=== PATIENT | female | born 1950 | race Caucasian/White ===

== ENCOUNTER 2017-05-09 14:28 | Inpatient (IN) | payer MEDICARE ==
[~2017-05-09] VITALS: Ht 162.6 cm; Wt 108.5 kg
[~2017-05-09 14:28] MED LIST: ALBU90OI INH; ALEN70 PO; AMLO5 PO; ASPI325 PO; AZIT250 PO; BETA.05TC TOP; CALGLU500 PO; CONEST.625; Calcium Citrat1 EA10 PO; DULO30 PO; ESOM20 PO; ESTR1 PO; ESTR2 PO; EXTRA STRENGTH500 MG PO; FISH OIL 1,0001 EAC1 PO; FISH1000 PO; GUAI600T33 PO; Glucosamine Ch1 EAC4 PO; LISI20 PO; MELO7.5; MELO7.5 PO; METPRE4DP PO; MINO50 PO; MOBIC; Mobic15 MG PO; OXYACE5T PO; OXYB5 PO; Omeprazole20 M1 PO; RISE5 PO; Sulfamethoxazo1 EAC4 PO; TETR250 PO; TRAM50 PO
[2017-05-09 16:10] LABS: Albumin, Blood 2.9 g/dL (3.4-5.0); Albumin/Globulin Ratio 0.5 (0.8-1.8); Bilirubin, Total 0.4 mg/dL (0.1-1.0); Bun/Creatinine Ratio 17.9 (12.0-20.0); Calcium, Blood 8.7 mg/dL (8.5-10.1); Creatinine, Blood 1.06 mg/dL (0.40-1.00); Globulin, Blood 5.7 g/dL (2.2-4.0); Potassium, Blood 3.4 mmol/L (3.5-5.5); Total Protein, Blood 8.6 g/dL (6.4-8.2)
[2017-05-09 16:13] LABS: BASOPHILS ABSOLUTE AUTO 0.02 K/mm3 (0.00-0.23); BASOPHILS PERCENT AUTO 0 % (0-2); EOSINOPHILS ABSOLUTE AUTO 0.04 K/mm3 (0.00-0.68); EOSINOPHILS PERCENT AUTO 0 % (0-6); Hematocrit 38.4 % (33.0-51.0); Hemoglobin 12.6 g/dL (11.5-16.0); IMMATURE GRAN ABSOLUTE AUTO 0.04 K/mm3 (0.00-0.10); IMMATURE GRAN PERCENT AUTO 0 % (0-1); LYMPHOCYTES ABSOLUTE AUTO 3.13 K/mm3 (0.84-5.20); LYMPHOCYTES PERCENT AUTO 26 % (21-46); MONOCYTES ABSOLUTE AUTO 0.95 K/mm3 (0.16-1.47); MONOCYTES PERCENT AUTO 8 % (4-13); Mean Corpuscular HGB 27.4 pg (26.0-34.0); Mean Corpuscular HGB Conc 32.8 g/dL (31.5-36.5); Mean Corpuscular Volume 84 fL (80-100); Mean Platelet Volume 10.3 fL (9.1-12.4); NEUTROPHILS ABSOLUTE AUTO 7.66 K/mm3 (1.96-9.15); NEUTROPHILS PERCENT AUTO 65 % (41-73); Platelet Count 228 K/mm3 (150-400); RDW Coefficient Variation 14.3 % (11.7-14.2); RDW Standard Deviation 43.5 fL (35.1-46.3); White Blood Cell Count 11.84 K/mm3 (4.00-11.30)
[2017-05-10 04:19] LABS: Source, Urine Clean Catch
[2017-05-10 04:21] LABS: Bilirubin, Urine Neg (Neg); Blood, Urine 4+ (Neg); Glucose Qualitative, Urine Neg (Neg); Ketones, Urine Neg (Neg); Leukocyte Esterase, Urine 2+ (Neg); Nitrite, Urine Neg (Neg); Protein, Urine 1+ (Neg); Urobilinogen, Urine NORM (Normal)
[2017-05-10 04:38] LABS: Appearance, Urine Clear (Clear); Color, Urine Yellow (P-Yellow)
[2017-05-10 04:39] LABS: Red Blood Cells, Urine 0-2 /hpf (0-2); Squamous Epithelial Cells Mod /hpf (Few)
[2017-05-10 04:40] LABS: Bacteria Few /hpf
[2017-05-10 05:34] LABS: BASOPHILS ABSOLUTE AUTO 0.02 K/mm3 (0.00-0.23); BASOPHILS PERCENT AUTO 0 % (0-2); EOSINOPHILS ABSOLUTE AUTO 0.09 K/mm3 (0.00-0.68); EOSINOPHILS PERCENT AUTO 1 % (0-6); Hematocrit 35.9 % (33.0-51.0); Hemoglobin 11.8 g/dL (11.5-16.0); IMMATURE GRAN ABSOLUTE AUTO 0.02 K/mm3 (0.00-0.10); IMMATURE GRAN PERCENT AUTO 0 % (0-1); LYMPHOCYTES ABSOLUTE AUTO 3.35 K/mm3 (0.84-5.20); LYMPHOCYTES PERCENT AUTO 35 % (21-46); MONOCYTES ABSOLUTE AUTO 0.74 K/mm3 (0.16-1.47); MONOCYTES PERCENT AUTO 8 % (4-13); Mean Corpuscular HGB 27.5 pg (26.0-34.0); Mean Corpuscular HGB Conc 32.9 g/dL (31.5-36.5); Mean Corpuscular Volume 84 fL (80-100); Mean Platelet Volume 10.4 fL (9.1-12.4); NEUTROPHILS ABSOLUTE AUTO 5.47 K/mm3 (1.96-9.15); NEUTROPHILS PERCENT AUTO 57 % (41-73); Platelet Count 189 K/mm3 (150-400); RDW Coefficient Variation 14.3 % (11.7-14.2); RDW Standard Deviation 43.8 fL (35.1-46.3); Red Blood Cell Count 4.29 M/mm3 (3.80-5.20); White Blood Cell Count 9.69 K/mm3 (4.00-11.30)
[2017-05-10 05:47] LABS: Amylase, Blood 31 U/L (25-115)
[2017-05-10 05:49] LABS: Alanine Aminotransfer (ALT/SGP 28 U/L (12-78); Albumin, Blood 2.5 g/dL (3.4-5.0); Albumin/Globulin Ratio 0.5 (0.8-1.8); Alk Phos 86 U/L (50-136); Anion Gap 10 mmol/L (6-16); Aspartate Aminotrans (AST/SGOT 31 U/L (12-37); Bilirubin, Direct <0.1 mg/dL (0.0-0.3); Bilirubin, Indirect Unable to Calculate mg/dL (0.1-0.7); Bilirubin, Total 0.4 mg/dL (0.1-1.0); Blood Urea Nitrogen 16 mg/dL (8-24); CO2, Blood 23 mmol/L (21-32); Calcium, Blood 8.4 mg/dL (8.5-10.1); Chloride, Blood 109 mmol/L (98-108); Globulin, Blood 5.3 g/dL (2.2-4.0); Glomerular Filtration Rate 59 (60-); Glucose, Blood 101 mg/dL (70-99); Potassium, Blood 3.8 mmol/L (3.5-5.5); Sodium, Blood 142 mmol/L (136-145); Total Protein, Blood 7.8 g/dL (6.4-8.2)
[2017-05-11 05:31] LABS: BASOPHILS ABSOLUTE AUTO 0.01 K/mm3 (0.00-0.23); BASOPHILS PERCENT AUTO 0 % (0-2); EOSINOPHILS ABSOLUTE AUTO 0.12 K/mm3 (0.00-0.68); EOSINOPHILS PERCENT AUTO 2 % (0-6); Hematocrit 33.8 % (33.0-51.0); Hemoglobin 10.9 g/dL (11.5-16.0); IMMATURE GRAN ABSOLUTE AUTO 0.02 K/mm3 (0.00-0.10); IMMATURE GRAN PERCENT AUTO 0 % (0-1); LYMPHOCYTES ABSOLUTE AUTO 1.91 K/mm3 (0.84-5.20); LYMPHOCYTES PERCENT AUTO 33 % (21-46); MONOCYTES PERCENT AUTO 7 % (4-13); Mean Corpuscular HGB Conc 32.2 g/dL (31.5-36.5); Mean Corpuscular Volume 84 fL (80-100); Mean Platelet Volume 9.9 fL (9.1-12.4); NEUTROPHILS ABSOLUTE AUTO 3.35 K/mm3 (1.96-9.15); NEUTROPHILS PERCENT AUTO 58 % (41-73); Platelet Count 186 K/mm3 (150-400); RDW Standard Deviation 43.3 fL (35.1-46.3); Red Blood Cell Count 4.03 M/mm3 (3.80-5.20); White Blood Cell Count 5.81 K/mm3 (4.00-11.30)
[2017-05-11 06:05] LABS: Alanine Aminotransfer (ALT/SGP 22 U/L (12-78); Albumin, Blood 2.4 g/dL (3.4-5.0); Albumin/Globulin Ratio 0.5 (0.8-1.8); Alk Phos 70 U/L (50-136); Anion Gap 10 mmol/L (6-16); Aspartate Aminotrans (AST/SGOT 19 U/L (12-37); Bilirubin, Total 0.3 mg/dL (0.1-1.0); Blood Urea Nitrogen 8 mg/dL (8-24); Bun/Creatinine Ratio 9.3 (12.0-20.0); CO2, Blood 24 mmol/L (21-32); Calcium, Blood 8.1 mg/dL (8.5-10.1); Chloride, Blood 110 mmol/L (98-108); Creatinine, Blood 0.86 mg/dL (0.40-1.00); Globulin, Blood 4.7 g/dL (2.2-4.0); Glomerular Filtration Rate >60 (60-); Glucose, Blood 93 mg/dL (70-99); Potassium, Blood 3.4 mmol/L (3.5-5.5); Sodium, Blood 144 mmol/L (136-145); Total Protein, Blood 7.1 g/dL (6.4-8.2)
[2017-05-12 06:20] LABS: BASOPHILS ABSOLUTE AUTO 0.01 K/mm3 (0.00-0.23); BASOPHILS PERCENT AUTO 0 % (0-2); EOSINOPHILS ABSOLUTE AUTO 0.11 K/mm3 (0.00-0.68); EOSINOPHILS PERCENT AUTO 2 % (0-6); Hematocrit 33.9 % (33.0-51.0); IMMATURE GRAN ABSOLUTE AUTO 0.03 K/mm3 (0.00-0.10); IMMATURE GRAN PERCENT AUTO 1 % (0-1); LYMPHOCYTES ABSOLUTE AUTO 2.32 K/mm3 (0.84-5.20); LYMPHOCYTES PERCENT AUTO 38 % (21-46); MONOCYTES PERCENT AUTO 8 % (4-13); Mean Corpuscular HGB Conc 32.4 g/dL (31.5-36.5); Mean Corpuscular Volume 83 fL (80-100); Mean Platelet Volume 9.8 fL (9.1-12.4); NEUTROPHILS ABSOLUTE AUTO 3.15 K/mm3 (1.96-9.15); NEUTROPHILS PERCENT AUTO 51 % (41-73); Platelet Count 192 K/mm3 (150-400); RDW Coefficient Variation 13.7 % (11.7-14.2); RDW Standard Deviation 41.5 fL (35.1-46.3); Red Blood Cell Count 4.08 M/mm3 (3.80-5.20); White Blood Cell Count 6.12 K/mm3 (4.00-11.30)
[2017-05-12 06:41] LABS: Alanine Aminotransfer (ALT/SGP 21 U/L (12-78); Albumin, Blood 2.5 g/dL (3.4-5.0); Albumin/Globulin Ratio 0.5 (0.8-1.8); Alk Phos 74 U/L (50-136); Anion Gap 9 mmol/L (6-16); Aspartate Aminotrans (AST/SGOT 19 U/L (12-37); Bilirubin, Total 0.3 mg/dL (0.1-1.0); Blood Urea Nitrogen 4 mg/dL (8-24); Bun/Creatinine Ratio 5.5 (12.0-20.0); CO2, Blood 27 mmol/L (21-32); Calcium, Blood 7.9 mg/dL (8.5-10.1); Chloride, Blood 107 mmol/L (98-108); Creatinine, Blood 0.73 mg/dL (0.40-1.00); Globulin, Blood 4.9 g/dL (2.2-4.0); Glomerular Filtration Rate >60 (60-); Glucose, Blood 95 mg/dL (70-99); Percent Saturation 26.1 % (15.0-50.0); Potassium, Blood 3.2 mmol/L (3.5-5.5); Sodium, Blood 143 mmol/L (136-145); Total Protein, Blood 7.4 g/dL (6.4-8.2)
[2017-05-13 04:38] LABS: BASOPHILS ABSOLUTE AUTO 0.01 K/mm3 (0.00-0.23); BASOPHILS PERCENT AUTO 0 % (0-2); EOSINOPHILS ABSOLUTE AUTO 0.08 K/mm3 (0.00-0.68); EOSINOPHILS PERCENT AUTO 2 % (0-6); Hematocrit 35.1 % (33.0-51.0); Hemoglobin 11.4 g/dL (11.5-16.0); IMMATURE GRAN ABSOLUTE AUTO 0.03 K/mm3 (0.00-0.10); IMMATURE GRAN PERCENT AUTO 1 % (0-1); LYMPHOCYTES ABSOLUTE AUTO 2.22 K/mm3 (0.84-5.20); LYMPHOCYTES PERCENT AUTO 41 % (21-46); MONOCYTES PERCENT AUTO 9 % (4-13); Mean Corpuscular HGB 27.2 pg (26.0-34.0); Mean Corpuscular HGB Conc 32.5 g/dL (31.5-36.5); Mean Corpuscular Volume 84 fL (80-100); Mean Platelet Volume 9.7 fL (9.1-12.4); NEUTROPHILS ABSOLUTE AUTO 2.54 K/mm3 (1.96-9.15); NEUTROPHILS PERCENT AUTO 47 % (41-73); Platelet Count 190 K/mm3 (150-400); RDW Coefficient Variation 13.6 % (11.7-14.2); RDW Standard Deviation 41.8 fL (35.1-46.3); Red Blood Cell Count 4.19 M/mm3 (3.80-5.20); White Blood Cell Count 5.38 K/mm3 (4.00-11.30)
[2017-05-13 04:59] LABS: Alanine Aminotransfer (ALT/SGP 19 U/L (12-78); Albumin, Blood 2.6 g/dL (3.4-5.0); Albumin/Globulin Ratio 0.5 (0.8-1.8); Alk Phos 71 U/L (50-136); Anion Gap 6 mmol/L (6-16); Aspartate Aminotrans (AST/SGOT 19 U/L (12-37); Bilirubin, Total 0.3 mg/dL (0.1-1.0); Blood Urea Nitrogen 3 mg/dL (8-24); Bun/Creatinine Ratio 3.7 (12.0-20.0); CO2, Blood 31 mmol/L (21-32); Calcium, Blood 7.8 mg/dL (8.5-10.1); Chloride, Blood 105 mmol/L (98-108); Creatinine, Blood 0.81 mg/dL (0.40-1.00); Globulin, Blood 4.8 g/dL (2.2-4.0); Glomerular Filtration Rate >60 (60-); Glucose, Blood 106 mg/dL (70-99); Potassium, Blood 3.3 mmol/L (3.5-5.5); Sodium, Blood 142 mmol/L (136-145); Total Protein, Blood 7.4 g/dL (6.4-8.2)
[2017-05-13 05:17] LABS: Magnesium, Blood 1.1 mg/dL (1.6-2.4)
[2017-05-13 11:15] LABS: Source, Urine Clean Catch
[2017-05-13 11:22] LABS: Bilirubin, Urine Neg (Neg); Blood, Urine Neg (Neg); Glucose Qualitative, Urine Neg (Neg); Ketones, Urine Neg (Neg); Leukocyte Esterase, Urine 2+ (Neg); Nitrite, Urine Neg (Neg); Protein, Urine Neg (Neg); Urobilinogen, Urine NORM (Normal)
[2017-05-13 11:43] LABS: Color, Urine Pale Yellow (P-Yellow)
[2017-05-13 11:44] LABS: Appearance, Urine Hazy (Clear); Bacteria Few /hpf; Red Blood Cells, Urine 0-2 /hpf (0-2)
[2017-05-13 11:45] LABS: Squamous Epithelial Cells Few /hpf (Few)
[2017-05-13] MEDS ORDERED: METR500 PO (12:13)
[2017-05-13] MEDS ORDERED: CIPR500 PO (12:13)
[2017-05-13] MEDS ORDERED: MAGOX 400400 MG PO (12:14)
[2018-03-05] MEDS ORDERED: Zofran Odt4 MG PO (19:20)
[2018-03-08] MEDS ORDERED: Bactrim Ds Tab1 EACH PO (08:47)
[2018-03-08] MEDS ORDERED: TIZANIDINE HCL2 MG PO (08:49)
[2018-03-08] MEDS ORDERED: Amoxicillin500 MG PO (11:38)
[2018-03-08] MEDS ORDERED: PROM25 PO (11:38)
[2018-04-25] MEDS ORDERED: ASPI81CH PO (07:13)
== END 2017-05-13 12:53 | disposition home or self-care (01) | DRG 392 ==
LOC: ER 14:28 → MEDS 20:19
PROVIDERS: Emergency Medicine; Family Medicine; Internal Medicine
DX: K57.20 Diverticulitis of large intestine with perforation and abscess without bleeding (principal); J44.9 Chronic obstructive pulmonary disease, unspecified; E87.6 Hypokalemia; G89.29 Other chronic pain; I10 Essential (primary) hypertension; M54.9 Dorsalgia, unspecified; Z96.642 Presence of left artificial hip joint; Z96.653 Presence of artificial knee joint, bilateral; Z87.891 Personal history of nicotine dependence; Z88.8 Allergy status to other drugs, medicaments and biological substances; Z91.048 Other nonmedicinal substance allergy status; Z79.899 Other long term (current) drug therapy
CPT/HCPCS: 36415; 74000; 74177; 80048; 80053; 80076; 81001; 82150; 82728; 83540; 83550; 83605; 83735; 85025; 87040; 87086; 94640; 94660; 94760; 94762; 96365; 99285; J1650; J2543; J3480; J7030; Q9967

== ENCOUNTER 2017-06-13 06:36 | Inpatient (IN) | payer MEDICARE ==
[~2017-06-13] VITALS: Ht 162.6 cm; Wt 106.5 kg
[~2017-06-13 06:36] MED LIST changes: +CIPR500 PO; +MAGOX 400400 MG PO; +METR500 PO
[2017-06-13] MEDS ORDERED: DULO30 PO (07:32)
[2017-06-13] MEDS ORDERED: Prilosec Otc20 MG PO (07:32)
[2017-06-13] MEDS ORDERED: DICL25ER PO (07:33)
[2017-06-13] MEDS ORDERED: AMLO10 PO (07:33)
[2017-06-13] MEDS ORDERED: Bystolic5 MG PO (07:33)
[2017-06-13] MEDS ORDERED: POTA10T PO (07:33)
[2017-06-13 07:36] LABS: BASOPHILS ABSOLUTE AUTO 0.05 K/mm3 (0.00-0.23); BASOPHILS PERCENT AUTO 1 % (0-2); EOSINOPHILS ABSOLUTE AUTO 0.06 K/mm3 (0.00-0.68); EOSINOPHILS PERCENT AUTO 1 % (0-6); Hemoglobin 12.3 g/dL (11.5-16.0); IMMATURE GRAN ABSOLUTE AUTO 0.03 K/mm3 (0.00-0.10); IMMATURE GRAN PERCENT AUTO 0 % (0-1); LYMPHOCYTES ABSOLUTE AUTO 2.22 K/mm3 (0.84-5.20); LYMPHOCYTES PERCENT AUTO 26 % (21-46); MONOCYTES ABSOLUTE AUTO 0.68 K/mm3 (0.16-1.47); MONOCYTES PERCENT AUTO 8 % (4-13); Mean Corpuscular HGB 27.1 pg (26.0-34.0); Mean Corpuscular HGB Conc 32.4 g/dL (31.5-36.5); Mean Corpuscular Volume 84 fL (80-100); Mean Platelet Volume 10.1 fL (9.1-12.4); NEUTROPHILS PERCENT AUTO 65 % (41-73); Platelet Count 199 K/mm3 (150-400); RDW Coefficient Variation 14.9 % (11.7-14.2); RDW Standard Deviation 45.9 fL (35.1-46.3); Red Blood Cell Count 4.54 M/mm3 (3.80-5.20); White Blood Cell Count 8.64 K/mm3 (4.00-11.30)
[2017-06-13 07:49] LABS: Alanine Aminotransfer (ALT/SGP 13 U/L (12-78); Albumin, Blood 2.9 g/dL (3.4-5.0); Albumin/Globulin Ratio 0.6 (0.8-1.8); Alk Phos 75 U/L (50-136); Anion Gap 7 mmol/L (6-16); Aspartate Aminotrans (AST/SGOT 14 U/L (12-37); Bilirubin, Total 0.4 mg/dL (0.1-1.0); Blood Urea Nitrogen 20 mg/dL (8-24); Bun/Creatinine Ratio 21.3 (12.0-20.0); CO2, Blood 27 mmol/L (21-32); Calcium, Blood 8.6 mg/dL (8.5-10.1); Chloride, Blood 105 mmol/L (98-108); Creatinine, Blood 0.94 mg/dL (0.40-1.00); Globulin, Blood 5.2 g/dL (2.2-4.0); Glomerular Filtration Rate >60 (60-); Glucose, Blood 126 mg/dL (70-99); Potassium, Blood 3.6 mmol/L (3.5-5.5); Sodium, Blood 139 mmol/L (136-145); Total Protein, Blood 8.1 g/dL (6.4-8.2)
[2017-06-13] MEDS ORDERED: CALCIUM + D3 E1 EACH PO (11:21)
[2017-06-13] MEDS ORDERED: GLUC500 PO (11:22)
[2017-06-13] MEDS ORDERED: FISH OIL 1,0001 EAC1 PO (11:22)
[2017-06-13] MEDS ORDERED: OPTIFLEX-C400 MG PO (11:23)
[2017-06-13] MEDS ORDERED: MSM1000 MG PO (11:23)
[2017-06-14 05:33] LABS: BASOPHILS ABSOLUTE AUTO 0.03 K/mm3 (0.00-0.23); BASOPHILS PERCENT AUTO 0 % (0-2); EOSINOPHILS ABSOLUTE AUTO 0.06 K/mm3 (0.00-0.68); EOSINOPHILS PERCENT AUTO 1 % (0-6); Hemoglobin 12.9 g/dL (11.5-16.0); IMMATURE GRAN ABSOLUTE AUTO 0.03 K/mm3 (0.00-0.10); IMMATURE GRAN PERCENT AUTO 0 % (0-1); LYMPHOCYTES ABSOLUTE AUTO 1.51 K/mm3 (0.84-5.20); LYMPHOCYTES PERCENT AUTO 20 % (21-46); MONOCYTES ABSOLUTE AUTO 0.55 K/mm3 (0.16-1.47); MONOCYTES PERCENT AUTO 7 % (4-13); Mean Corpuscular HGB 27.1 pg (26.0-34.0); Mean Corpuscular HGB Conc 32.3 g/dL (31.5-36.5); Mean Corpuscular Volume 84 fL (80-100); Mean Platelet Volume 10.6 fL (9.1-12.4); NEUTROPHILS ABSOLUTE AUTO 5.38 K/mm3 (1.96-9.15); NEUTROPHILS PERCENT AUTO 71 % (41-73); Platelet Count 203 K/mm3 (150-400); RDW Coefficient Variation 14.7 % (11.7-14.2); Red Blood Cell Count 4.76 M/mm3 (3.80-5.20); White Blood Cell Count 7.56 K/mm3 (4.00-11.30)
[2017-06-14 05:49] LABS: Anion Gap 10 mmol/L (6-16); Blood Urea Nitrogen 11 mg/dL (8-24); Bun/Creatinine Ratio 14.1 (12.0-20.0); CO2, Blood 26 mmol/L (21-32); Calcium, Blood 8.5 mg/dL (8.5-10.1); Chloride, Blood 105 mmol/L (98-108); Creatinine, Blood 0.78 mg/dL (0.40-1.00); Glomerular Filtration Rate >60 (60-); Glucose, Blood 113 mg/dL (70-99); Potassium, Blood 3.6 mmol/L (3.5-5.5); Sodium, Blood 141 mmol/L (136-145)
[2017-06-16 04:52] LABS: BASOPHILS ABSOLUTE AUTO 0.05 K/mm3 (0.00-0.23); BASOPHILS PERCENT AUTO 0 % (0-2); EOSINOPHILS ABSOLUTE AUTO 0.12 K/mm3 (0.00-0.68); EOSINOPHILS PERCENT AUTO 1 % (0-6); Hematocrit 42.9 % (33.0-51.0); Hemoglobin 13.6 g/dL (11.5-16.0); IMMATURE GRAN ABSOLUTE AUTO 0.04 K/mm3 (0.00-0.10); IMMATURE GRAN PERCENT AUTO 0 % (0-1); LYMPHOCYTES PERCENT AUTO 28 % (21-46); MONOCYTES ABSOLUTE AUTO 0.98 K/mm3 (0.16-1.47); MONOCYTES PERCENT AUTO 8 % (4-13); Mean Corpuscular HGB 27.1 pg (26.0-34.0); Mean Corpuscular HGB Conc 31.7 g/dL (31.5-36.5); Mean Corpuscular Volume 86 fL (80-100); Mean Platelet Volume 9.7 fL (9.1-12.4); NEUTROPHILS ABSOLUTE AUTO 8.02 K/mm3 (1.96-9.15); NEUTROPHILS PERCENT AUTO 63 % (41-73); Platelet Count 285 K/mm3 (150-400); RDW Coefficient Variation 14.6 % (11.7-14.2); RDW Standard Deviation 46.3 fL (35.1-46.3); Red Blood Cell Count 5.01 M/mm3 (3.80-5.20); White Blood Cell Count 12.81 K/mm3 (4.00-11.30)
[2017-06-16 05:36] LABS: Anion Gap 9 mmol/L (6-16); Blood Urea Nitrogen 8 mg/dL (8-24); Bun/Creatinine Ratio 9.4 (12.0-20.0); CO2, Blood 28 mmol/L (21-32); Calcium, Blood 8.9 mg/dL (8.5-10.1); Chloride, Blood 103 mmol/L (98-108); Creatinine, Blood 0.85 mg/dL (0.40-1.00); Glomerular Filtration Rate >60 (60-); Glucose, Blood 121 mg/dL (70-99); Potassium, Blood 3.5 mmol/L (3.5-5.5); Sodium, Blood 140 mmol/L (136-145)
[2017-06-16] MEDS ORDERED: SACC250C PO (12:32)
[2017-06-16] MEDS ORDERED: Augmentin 875-1 EACH PO (12:43)
[2018-03-05] MEDS ORDERED: Zofran Odt4 MG PO (19:20)
[2018-03-08] MEDS ORDERED: Bactrim Ds Tab1 EACH PO (08:47)
[2018-03-08] MEDS ORDERED: TIZANIDINE HCL2 MG PO (08:49)
[2018-03-08] MEDS ORDERED: PROM25 PO (11:38)
[2018-03-08] MEDS ORDERED: Amoxicillin500 MG PO (11:38)
[2018-04-25] MEDS ORDERED: ASPI81CH PO (07:13)
== END 2017-06-16 13:00 | disposition home or self-care (01) | DRG 392 ==
LOC: ER 06:36 → MEDS 10:27 → ENPENDDIS 06-16 10:28 → MEDS 06-16 13:00
PROVIDERS: Emergency Medicine; Hospitalist
DX: K57.32 Diverticulitis of large intestine without perforation or abscess without bleeding (principal); F32.9 Major depressive disorder, single episode, unspecified; F41.9 Anxiety disorder, unspecified; I10 Essential (primary) hypertension; K21.9 Gastro-esophageal reflux disease without esophagitis; M19.90 Unspecified osteoarthritis, unspecified site; Z87.891 Personal history of nicotine dependence; Z88.6 Allergy status to analgesic agent; Z88.8 Allergy status to other drugs, medicaments and biological substances; Z91.048 Other nonmedicinal substance allergy status; Z79.899 Other long term (current) drug therapy
CPT/HCPCS: 36415; 74176; 80048; 80053; 85025; 96365; 99285; J0744; J2543; J7030

== ENCOUNTER 2017-07-05 14:34 | Emergency (ER) | payer MEDICARE ==
[~2017-07-05] VITALS: Ht 162.6 cm; Wt 104.3 kg
[~2017-07-05 14:34] MED LIST changes: +AMLO10 PO; +Augmentin 875-1 EACH PO; +Bystolic5 MG PO; +CALCIUM + D3 E1 EACH PO; +DICL25ER PO; +GLUC500 PO; +MSM1000 MG PO; +OPTIFLEX-C400 MG PO; +POTA10T PO; +Prilosec Otc20 MG PO; +SACC250C PO
[2017-07-05 16:00] LABS: BASOPHILS ABSOLUTE AUTO 0.03 K/mm3 (0.00-0.23); BASOPHILS PERCENT AUTO 0 % (0-2); EOSINOPHILS ABSOLUTE AUTO 0.07 K/mm3 (0.00-0.68); EOSINOPHILS PERCENT AUTO 1 % (0-6); Hematocrit 36.4 % (33.0-51.0); Hemoglobin 11.7 g/dL (11.5-16.0); IMMATURE GRAN ABSOLUTE AUTO 0.03 K/mm3 (0.00-0.10); IMMATURE GRAN PERCENT AUTO 0 % (0-1); LYMPHOCYTES ABSOLUTE AUTO 2.44 K/mm3 (0.84-5.20); LYMPHOCYTES PERCENT AUTO 30 % (21-46); MONOCYTES ABSOLUTE AUTO 0.66 K/mm3 (0.16-1.47); MONOCYTES PERCENT AUTO 8 % (4-13); Mean Corpuscular HGB 26.9 pg (26.0-34.0); Mean Corpuscular HGB Conc 32.1 g/dL (31.5-36.5); Mean Corpuscular Volume 84 fL (80-100); NEUTROPHILS ABSOLUTE AUTO 4.91 K/mm3 (1.96-9.15); NEUTROPHILS PERCENT AUTO 60 % (41-73); Platelet Count 220 K/mm3 (150-400); RDW Coefficient Variation 14.6 % (11.7-14.2); RDW Standard Deviation 44.8 fL (35.1-46.3); Red Blood Cell Count 4.35 M/mm3 (3.80-5.20); White Blood Cell Count 8.14 K/mm3 (4.00-11.30)
[2017-07-05 16:24] LABS: Alanine Aminotransfer (ALT/SGP 14 U/L (12-78); Albumin, Blood 2.8 g/dL (3.4-5.0); Albumin/Globulin Ratio 0.5 (0.8-1.8); Alk Phos 77 U/L (50-136); Anion Gap 10 mmol/L (6-16); Aspartate Aminotrans (AST/SGOT 17 U/L (12-37); Bilirubin, Total 0.4 mg/dL (0.1-1.0); Blood Urea Nitrogen 9 mg/dL (8-24); Bun/Creatinine Ratio 11.9 (12.0-20.0); CO2, Blood 26 mmol/L (21-32); Calcium, Blood 8.3 mg/dL (8.5-10.1); Chloride, Blood 103 mmol/L (98-108); Creatinine, Blood 0.76 mg/dL (0.40-1.00); Globulin, Blood 5.4 g/dL (2.2-4.0); Glomerular Filtration Rate >60 (60-); Glucose, Blood 106 mg/dL (70-99); Potassium, Blood 3.2 mmol/L (3.5-5.5); Sodium, Blood 139 mmol/L (136-145); Total Protein, Blood 8.2 g/dL (6.4-8.2)
[2017-07-05] MEDS ORDERED: Flagyl500 MG PO (16:50)
[2017-07-05] MEDS ORDERED: Cipro500 MG PO (16:50)
[2018-03-05] MEDS ORDERED: Zofran Odt4 MG PO (19:20)
[2018-03-08] MEDS ORDERED: Bactrim Ds Tab1 EACH PO (08:47)
[2018-03-08] MEDS ORDERED: TIZANIDINE HCL2 MG PO (08:49)
[2018-03-08] MEDS ORDERED: Amoxicillin500 MG PO (11:38)
[2018-03-08] MEDS ORDERED: PROM25 PO (11:38)
[2018-04-25] MEDS ORDERED: ASPI81CH PO (07:13)
== END 2017-07-05 17:05 | disposition home or self-care (01) ==
LOC: ER 14:34
PROVIDERS: Emergency Medicine
DX: K57.32 Diverticulitis of large intestine without perforation or abscess without bleeding (principal); Z88.8 Allergy status to other drugs, medicaments and biological substances; Z79.899 Other long term (current) drug therapy; I10 Essential (primary) hypertension; Z87.891 Personal history of nicotine dependence
CPT/HCPCS: 36415; 74177; 80053; 83690; 85025; 93005; 93010; 96360; 99284; J7030; Q9967

== ENCOUNTER → 2017-07-15 | Outpatient (CLI) | payer MEDICARE ==
[~2017-07-15] MED LIST changes: +ASPI81CH PO; +Amoxicillin500 MG PO; +Bactrim Ds Tab1 EACH PO; +Cipro500 MG PO; +Flagyl500 MG PO; +Norco 5-325 Ta1 EACH PO; +PROM25 PO; +TIZANIDINE HCL2 MG PO; +Zofran Odt4 MG PO
[2017-07-16 12:02] LABS: Candida species (DNA Probe) Negative (NEGATIVE); G. vaginalis (DNA Probe) Negative (NEGATIVE); T. vaginalis (DNA Probe) Negative (NEGATIVE)
== END ==
LOC: LAB 20:15
PROVIDERS: Family Medicine
DX: N72 Inflammatory disease of cervix uteri (principal)
CPT/HCPCS: 87480; 87510; 87660

== ENCOUNTER 2017-07-27 10:07 | Emergency (ER) | payer MEDICARE ==
[~2017-07-27] VITALS: Ht 162.6 cm; Wt 99.8 kg
[~2017-07-27 10:07] MED LIST changes: -ASPI81CH PO; -Amoxicillin500 MG PO; -Bactrim Ds Tab1 EACH PO; -Norco 5-325 Ta1 EACH PO; -PROM25 PO; -TIZANIDINE HCL2 MG PO; -Zofran Odt4 MG PO
[2017-07-27 11:26] LABS: BASOPHILS ABSOLUTE AUTO 0.03 K/mm3 (0.00-0.23); BASOPHILS PERCENT AUTO 0 % (0-2); EOSINOPHILS ABSOLUTE AUTO 0.05 K/mm3 (0.00-0.68); EOSINOPHILS PERCENT AUTO 1 % (0-6); Hematocrit 37.1 % (33.0-51.0); Hemoglobin 11.8 g/dL (11.5-16.0); IMMATURE GRAN ABSOLUTE AUTO 0.03 K/mm3 (0.00-0.10); IMMATURE GRAN PERCENT AUTO 0 % (0-1); LYMPHOCYTES ABSOLUTE AUTO 2.04 K/mm3 (0.84-5.20); LYMPHOCYTES PERCENT AUTO 27 % (21-46); MONOCYTES ABSOLUTE AUTO 0.63 K/mm3 (0.16-1.47); MONOCYTES PERCENT AUTO 8 % (4-13); Mean Corpuscular HGB 26.8 pg (26.0-34.0); Mean Corpuscular HGB Conc 31.8 g/dL (31.5-36.5); Mean Corpuscular Volume 84 fL (80-100); Mean Platelet Volume 9.7 fL (9.1-12.4); NEUTROPHILS ABSOLUTE AUTO 4.85 K/mm3 (1.96-9.15); NEUTROPHILS PERCENT AUTO 64 % (41-73); Platelet Count 236 K/mm3 (150-400); RDW Coefficient Variation 14.4 % (11.7-14.2); RDW Standard Deviation 44.3 fL (35.1-46.3); Red Blood Cell Count 4.41 M/mm3 (3.80-5.20); White Blood Cell Count 7.63 K/mm3 (4.00-11.30)
[2017-07-27 11:47] LABS: Alanine Aminotransfer (ALT/SGP 12 U/L (12-78); Albumin/Globulin Ratio 0.5 (0.8-1.8); Alk Phos 74 U/L (50-136); Anion Gap 8 mmol/L (6-16); Aspartate Aminotrans (AST/SGOT 15 U/L (12-37); Bilirubin, Total 0.5 mg/dL (0.1-1.0); Blood Urea Nitrogen 10 mg/dL (8-24); Bun/Creatinine Ratio 12.7 (12.0-20.0); CO2, Blood 28 mmol/L (21-32); Calcium, Blood 8.8 mg/dL (8.5-10.1); Chloride, Blood 102 mmol/L (98-108); Creatinine, Blood 0.79 mg/dL (0.40-1.00); Globulin, Blood 5.8 g/dL (2.2-4.0); Glomerular Filtration Rate >60 (60-); Glucose, Blood 93 mg/dL (70-99); Potassium, Blood 3.2 mmol/L (3.5-5.5); Sodium, Blood 138 mmol/L (136-145); Total Protein, Blood 8.8 g/dL (6.4-8.2)
[2017-07-27] MEDS ORDERED: Norco 5-325 Ta1 EACH PO (13:22)
[2017-07-27] MEDS ORDERED: Flagyl500 MG PO (13:22)
[2017-07-27] MEDS ORDERED: Bactrim Ds Tab1 EACH PO (13:22)
[2017-07-27] MEDS ORDERED: Zofran Odt4 MG PO (13:23)
[2018-03-05] MEDS ORDERED: Zofran Odt4 MG PO (19:20)
[2018-03-08] MEDS ORDERED: Bactrim Ds Tab1 EACH PO (08:47)
[2018-03-08] MEDS ORDERED: TIZANIDINE HCL2 MG PO (08:49)
[2018-03-08] MEDS ORDERED: Amoxicillin500 MG PO (11:38)
[2018-03-08] MEDS ORDERED: PROM25 PO (11:38)
[2018-04-25] MEDS ORDERED: ASPI81CH PO (07:13)
== END 2017-07-27 13:58 | disposition home or self-care (01) ==
LOC: ER 10:07
PROVIDERS: Emergency Medicine
DX: K57.32 Diverticulitis of large intestine without perforation or abscess without bleeding (principal); E87.6 Hypokalemia; I10 Essential (primary) hypertension; Z87.891 Personal history of nicotine dependence; Z79.899 Other long term (current) drug therapy
CPT/HCPCS: 36415; 74177; 80053; 83690; 85025; 93005; 93010; 96374; 99284; J1170; Q9967

== ENCOUNTER 2017-08-21 09:13 | Day surgery (SDC) | payer MEDICARE ==
[~2017-08-21] VITALS: Ht 162.6 cm; Wt 99.0 kg
[~2017-08-21 09:13] MED LIST changes: +Bactrim Ds Tab1 EACH PO; +Norco 5-325 Ta1 EACH PO; +Zofran Odt4 MG PO
== END 2017-08-21 11:30 | disposition home or self-care (01) ==
LOC: ORSCSDS 09:13
PROVIDERS: Surgery
PROC: 0DJD8ZZ Inspection of Lower Intestinal Tract, Via Natural or Artificial Opening Endoscopic (ICD-10-PCS; principal; 2017-08-21 10:30)
DX: Z12.11 Encounter for screening for malignant neoplasm of colon (principal); K56.699 Other intestinal obstruction unspecified as to partial versus complete obstruction; Z83.71 Family history of colonic polyps; I10 Essential (primary) hypertension; J44.9 Chronic obstructive pulmonary disease, unspecified; K21.9 Gastro-esophageal reflux disease without esophagitis; G47.33 Obstructive sleep apnea (adult) (pediatric); Z79.82 Long term (current) use of aspirin; Z79.899 Other long term (current) drug therapy
CPT/HCPCS: J2250; J2405; J7120

== ENCOUNTER 2018-02-15 11:05 | Day surgery (SDC) | payer MEDICARE ==
[~2018-02-15] VITALS: Ht 162.6 cm; Wt 104.3 kg
== END 2018-02-15 22:48 | disposition home or self-care (01) ==
LOC: ORSCMMR 11:05 → ORD 12:30 → ORSCMMR 12:30
PROVIDERS: Orthopaedic Surgery
PROC: 0RBV0ZZ Excision of Left Metacarpophalangeal Joint, Open Approach (ICD-10-PCS; 2018-02-15)
PROC: 0RBU0ZZ Excision of Right Metacarpophalangeal Joint, Open Approach (ICD-10-PCS; principal; 2018-02-15 12:30)
DX: R22.31 Localized swelling, mass and lump, right upper limb (principal); I10 Essential (primary) hypertension; Z87.891 Personal history of nicotine dependence; G47.33 Obstructive sleep apnea (adult) (pediatric); E66.01 Morbid (severe) obesity due to excess calories; Z68.39 Body mass index [BMI] 39.0-39.9, adult; Z79.899 Other long term (current) drug therapy
CPT/HCPCS: 88304; J0690; J2250; J3010; J7120

== ENCOUNTER 2018-05-17 17:06 | Emergency (ER) | payer MEDICARE ==
[~2018-05-17] VITALS: Ht 162.6 cm; Wt 101.2 kg
[~2018-05-17 17:06] MED LIST changes: +ASPI81CH PO; +Amoxicillin500 MG PO; +PROM25 PO; +TIZANIDINE HCL2 MG PO
[2018-05-17 18:26] LABS: BASOPHILS ABSOLUTE AUTO 0.05 K/mm3 (0.00-0.23); BASOPHILS PERCENT AUTO 0 % (0-2); EOSINOPHILS ABSOLUTE AUTO 0.04 K/mm3 (0.00-0.68); EOSINOPHILS PERCENT AUTO 0 % (0-6); Hematocrit 42.3 % (33.0-51.0); Hemoglobin 13.3 g/dL (11.5-16.0); IMMATURE GRAN ABSOLUTE AUTO 0.07 K/mm3 (0.00-0.10); IMMATURE GRAN PERCENT AUTO 1 % (0-1); LYMPHOCYTES ABSOLUTE AUTO 2.47 K/mm3 (0.84-5.20); LYMPHOCYTES PERCENT AUTO 21 % (21-46); MONOCYTES ABSOLUTE AUTO 0.77 K/mm3 (0.16-1.47); MONOCYTES PERCENT AUTO 7 % (4-13); Mean Corpuscular HGB Conc 31.4 g/dL (31.5-36.5); Mean Corpuscular Volume 86 fL (80-100); Mean Platelet Volume 10.2 fL (9.1-12.4); NEUTROPHILS PERCENT AUTO 71 % (41-73); Platelet Count 221 K/mm3 (150-400); RDW Coefficient Variation 13.5 % (11.7-14.2); Red Blood Cell Count 4.92 M/mm3 (3.80-5.20)
[2018-05-17 18:36] LABS: Albumin, Blood 3.2 g/dL (3.4-5.0); Albumin/Globulin Ratio 0.5 (0.8-1.8); Bilirubin, Total 0.9 mg/dL (0.1-1.0); Bun/Creatinine Ratio 16.2 (12.0-20.0); Calcium, Blood 9.1 mg/dL (8.5-10.1); Creatinine, Blood 1.11 mg/dL (0.40-1.00); Potassium, Blood 3.6 mmol/L (3.5-5.5); Total Protein, Blood 9.2 g/dL (6.4-8.2)
[2018-05-17 18:38] LABS: PCO2 Arterial 39.8 mmHg (35-45); PO2 Arterial 69.9 mmHg (80-100); pH Blood Arterial 7.46 (7.35-7.45)
[2018-05-17 18:57] LABS: Influenza A Negative (NEGATIVE); Influenza B Negative (NEGATIVE)
[2018-05-17 19:24] LABS: PCO2 Arterial 33.5 mmHg (35-45); PO2 Arterial 76.9 mmHg (80-100); pH Blood Arterial 7.44 (7.35-7.45)
== END 2018-05-17 20:03 | disposition home or self-care (01) ==
LOC: ER 17:06
PROVIDERS: Emergency Medicine; Physician Assistant
DX: J06.9 Acute upper respiratory infection, unspecified (principal); J44.9 Chronic obstructive pulmonary disease, unspecified; I10 Essential (primary) hypertension; Z87.891 Personal history of nicotine dependence; Z79.899 Other long term (current) drug therapy; Z79.82 Long term (current) use of aspirin
CPT/HCPCS: 36415; 36600; 71046; 80053; 82803; 85025; 87804; 94640; 99284-25

== ENCOUNTER 2019-04-09 07:14 | Emergency (ER) | payer MEDICARE ==
[~2019-04-09] VITALS: Ht 162.6 cm; Wt 102.1 kg
== END 2019-04-09 07:41 | disposition home or self-care (01) ==
LOC: ER 07:14
DX: J06.9 Acute upper respiratory infection, unspecified (principal); H92.02 Otalgia, left ear; I10 Essential (primary) hypertension; Z87.891 Personal history of nicotine dependence; Z88.8 Allergy status to other drugs, medicaments and biological substances; Z91.048 Other nonmedicinal substance allergy status; Z79.899 Other long term (current) drug therapy; Z79.82 Long term (current) use of aspirin
CPT/HCPCS: 99282

== ENCOUNTER 2019-04-20 08:05 | Emergency (ER) | payer MEDICARE ==
[~2019-04-20] VITALS: Ht 162.6 cm; Wt 102.1 kg
[2019-04-20 08:33] LABS: Source, Urine Clean Catch
[2019-04-20 08:35] LABS: Bilirubin, Urine Neg (Neg); Blood, Urine 3+ (Neg); Glucose Qualitative, Urine Neg (Neg); Ketones, Urine Neg (Neg); Leukocyte Esterase, Urine 3+ (Neg); Nitrite, Urine Pos (Neg); Protein, Urine 2+ (Neg); Urobilinogen, Urine NORM (Normal)
[2019-04-20 08:39] LABS: Appearance, Urine Cloudy (Clear); Color, Urine Yellow (P-Yellow)
[2019-04-20 08:43] LABS: Bacteria Many /hpf; Red Blood Cells, Urine TNTC /hpf (0-2); Squamous Epithelial Cells Few /hpf (Few); White Blood Cells, Urine TNTC /hpf (0-5)
[2019-04-20 08:58] LABS: BASOPHILS ABSOLUTE AUTO 0.03 K/mm3 (0.00-0.23); BASOPHILS PERCENT AUTO 0 % (0-2); EOSINOPHILS PERCENT AUTO 1 % (0-6); Hematocrit 40.5 % (33.0-51.0); Hemoglobin 12.6 g/dL (11.5-16.0); IMMATURE GRAN ABSOLUTE AUTO 0.02 K/mm3 (0.00-0.10); IMMATURE GRAN PERCENT AUTO 0 % (0-1); LYMPHOCYTES ABSOLUTE AUTO 2.96 K/mm3 (0.84-5.20); LYMPHOCYTES PERCENT AUTO 38 % (21-46); MONOCYTES ABSOLUTE AUTO 0.51 K/mm3 (0.16-1.47); MONOCYTES PERCENT AUTO 7 % (4-13); Mean Corpuscular HGB 27.1 pg (26.0-34.0); Mean Corpuscular HGB Conc 31.1 g/dL (31.5-36.5); Mean Corpuscular Volume 87 fL (80-100); Mean Platelet Volume 10.6 fL (9.1-12.4); NEUTROPHILS ABSOLUTE AUTO 4.14 K/mm3 (1.96-9.15); NEUTROPHILS PERCENT AUTO 53 % (41-73); Platelet Count 161 K/mm3 (150-400); Red Blood Cell Count 4.65 M/mm3 (3.80-5.20); White Blood Cell Count 7.76 K/mm3 (4.00-11.30)
[2019-04-20] MEDS ORDERED: OXYB5 PO (09:00)
[2019-04-20 09:16] LABS: Alanine Aminotransfer (ALT/SGP 16 U/L (12-78); Albumin/Globulin Ratio 0.6 (0.8-1.8); Alk Phos 100 U/L (50-136); Anion Gap 5 mmol/L (6-16); Aspartate Aminotrans (AST/SGOT 16 U/L (12-37); Bilirubin, Total 0.4 mg/dL (0.1-1.0); Blood Urea Nitrogen 17 mg/dL (8-24); Bun/Creatinine Ratio 21.1 (12.0-20.0); CO2, Blood 30 mmol/L (21-32); Calcium, Blood 8.4 mg/dL (8.5-10.1); Chloride, Blood 106 mmol/L (98-108); Globulin, Blood 5.1 g/dL (2.2-4.0); Glomerular Filtration Rate >60 (60-); Glucose, Blood 95 mg/dL (70-99); Potassium, Blood 3.5 mmol/L (3.5-5.5); Sodium, Blood 141 mmol/L (136-145); Total Protein, Blood 8.1 g/dL (6.4-8.2)
[2019-04-20] MEDS ORDERED: Keflex500 MG PO (10:32)
== END 2019-04-20 11:19 | disposition home or self-care (01) ==
LOC: ER 08:05
PROVIDERS: Emergency Medicine; Physician Assistant
DX: N39.0 Urinary tract infection, site not specified (principal); I10 Essential (primary) hypertension; Z87.891 Personal history of nicotine dependence
CPT/HCPCS: 36415; 74176; 80053; 81001; 85025; 87077; 87086; 87186; 96365; 99284-25; J0696

== ENCOUNTER 2020-01-07 15:32 | Inpatient (IN) | payer MEDICARE ==
[~2020-01-07] VITALS: Ht 162.6 cm; Wt 104.2 kg
[~2020-01-07 15:32] MED LIST changes: +CALCIUM CITRATE PO; +Keflex500 MG PO; +MAGNESIUM OXID500 MG PO; -POTA10T PO; +VITAMIN B125000 MC1 PO; +Voltaren100 GM TOP
[2020-01-07 17:24] LABS: BASOPHILS ABSOLUTE AUTO 0.06 K/mm3 (0.00-0.23); BASOPHILS PERCENT AUTO 0 % (0-2); EOSINOPHILS ABSOLUTE AUTO 0.03 K/mm3 (0.00-0.68); EOSINOPHILS PERCENT AUTO 0 % (0-6); Hematocrit 45.5 % (33.0-51.0); Hemoglobin 14.5 g/dL (11.5-16.0); IMMATURE GRAN ABSOLUTE AUTO 0.18 K/mm3 (0.00-0.10); IMMATURE GRAN PERCENT AUTO 1 % (0-1); LYMPHOCYTES PERCENT AUTO 22 % (21-46); MONOCYTES ABSOLUTE AUTO 0.91 K/mm3 (0.16-1.47); MONOCYTES PERCENT AUTO 6 % (4-13); Mean Corpuscular HGB 27.9 pg (26.0-34.0); Mean Corpuscular HGB Conc 31.9 g/dL (31.5-36.5); Mean Corpuscular Volume 88 fL (80-100); Mean Platelet Volume 10.5 fL (9.1-12.4); NEUTROPHILS ABSOLUTE AUTO 11.02 K/mm3 (1.96-9.15); NEUTROPHILS PERCENT AUTO 70 % (41-73); Platelet Count 199 K/mm3 (150-400); RDW Coefficient Variation 13.6 % (11.7-14.2); RDW Standard Deviation 43.7 fL (35.1-46.3); Red Blood Cell Count 5.19 M/mm3 (3.80-5.20)
[2020-01-07 17:46] LABS: Albumin, Blood 3.2 g/dL (3.4-5.0); Albumin/Globulin Ratio 0.6 (0.8-1.8); Bilirubin, Total 0.6 mg/dL (0.1-1.0); Bun/Creatinine Ratio 21.4 (12.0-20.0); Calcium, Blood 8.7 mg/dL (8.5-10.1); Creatinine, Blood 0.98 mg/dL (0.40-1.00); Globulin, Blood 5.2 g/dL (2.2-4.0); Total Protein, Blood 8.4 g/dL (6.4-8.2)
[2020-01-07] MEDS ORDERED: AMLO5 PO (19:10)
[2020-01-07] MEDS ORDERED: K-Dur20 MEQ PO (19:12)
[2020-01-07] MEDS ORDERED: XARELTO10 M1 PO (19:12)
[2020-01-07] MEDS ORDERED: OMEP20ER PO (19:14)
[2020-01-07] MEDS ORDERED: DULO30 PO (19:14)
[2020-01-07] MEDS ORDERED: NEBI5 PO (19:14)
[2020-01-07] MEDS ORDERED: OXYB5 PO (19:15)
[2020-01-07] MEDS ORDERED: ALBU90OI INH (19:16)
[2020-01-07] MEDS ORDERED: FISH OIL 1,2001 EAC7 PO (19:26)
[2020-01-07] MEDS ORDERED: B-121000 MC3 PO (19:27)
--- NOTE | 2020-01-07 23:18 | NUR ---
PATIENT ARRIVED TO THE UNIT AT 2214. SHE IS ALERT AND ORIENTED X4. SHARP PAIN IN HER LEFT SIDE DUE TO RIB FX. PATIENT MEDICATED WITH PRN NORCO. PATIENT ON 4 LITERS O2 VIA NASAL CANULA, RA AT BASELINE. PATIENT TYPICALLY AMBULATES WITH WITH EITHER A CANE OR WALKER AT HOME.
[2020-01-08 05:30] LABS: BASOPHILS ABSOLUTE AUTO 0.03 K/mm3 (0.00-0.23); BASOPHILS PERCENT AUTO 0 % (0-2); EOSINOPHILS ABSOLUTE AUTO 0.02 K/mm3 (0.00-0.68); EOSINOPHILS PERCENT AUTO 0 % (0-6); Hematocrit 40.4 % (33.0-51.0); Hemoglobin 13.2 g/dL (11.5-16.0); IMMATURE GRAN ABSOLUTE AUTO 0.06 K/mm3 (0.00-0.10); IMMATURE GRAN PERCENT AUTO 1 % (0-1); LYMPHOCYTES ABSOLUTE AUTO 2.46 K/mm3 (0.84-5.20); LYMPHOCYTES PERCENT AUTO 27 % (21-46); MONOCYTES PERCENT AUTO 8 % (4-13); Mean Corpuscular HGB 28.1 pg (26.0-34.0); Mean Corpuscular HGB Conc 32.7 g/dL (31.5-36.5); Mean Corpuscular Volume 86 fL (80-100); Mean Platelet Volume 10.5 fL (9.1-12.4); NEUTROPHILS ABSOLUTE AUTO 5.96 K/mm3 (1.96-9.15); NEUTROPHILS PERCENT AUTO 65 % (41-73); Platelet Count 127 K/mm3 (150-400); RDW Coefficient Variation 13.6 % (11.7-14.2); RDW Standard Deviation 43.1 fL (35.1-46.3); White Blood Cell Count 9.23 K/mm3 (4.00-11.30)
[2020-01-08 05:45] LABS: Bun/Creatinine Ratio 22.3 (12.0-20.0); Calcium, Blood 8.2 mg/dL (8.5-10.1); Creatinine, Blood 0.99 mg/dL (0.40-1.00); Potassium, Blood 3.8 mmol/L (3.5-5.5)
--- NOTE | 2020-01-08 06:45 | NUR ---
SHIFT SUMMARY PATIENT ALERT AND ORIENTED. PATIENT DID NOT GET MUCH SLEEP OVERNIGHT DUE TO PAIN FROM FRACTURED RIBS AND CHRONIC JOINT PAIN. PATIENT MEDICATED FOR PAIN PER EMAR, HEATING PAD APPLIED TO RIBS. IV PATENT AND FLUSHED. BED IN LOWEST POSITION WITH WHEELS LOCKED AND ALARM ON. CALL LIGHT WTIHIN REACH. REPORT GIVEN TO ONCOMING RN.
--- NOTE | 2020-01-08 08:30 | NUR ---
PT PLEASANT COOP A/O X3. STATES PAIN RIBS 01/21. MED PER EMAR. H/R REG, NO MURMER NOTED. NO TELE. LUNGS CLEAR EXCEPT LOW LEFT LIGHT CRACKLES. RESP SHALLOW. LABORED TO TAKE DEEP BREATH. ON 2L O2 AT THIS TIME. RIB FX. BT X4 LST BM YEST. ABD SOMEWHAT DISTENDED. SOFT. PT STATES PENDING ABD HERNIA REPAIR THIS NEXT WEEK. VOIDS PER ATTENDS. INCONT. 1 ASST FWW. BED IN LOW POSITION, CALL LITE IN REACH, CALLS APPROP
--- NOTE | 2020-01-08 13:09 | NUR ---
dr timtrate okay to continue xarelto
--- NOTE | 2020-01-08 18:10 | NUR ---
PT BP ELEVATED. COREG ADMIN. CALLED DR DALY. ORDERS FOR HYDRALAZINE GIVEN
--- NOTE | 2020-01-08 18:27 | NUR ---
Initial spiritual care note: Lengthy visit with Antoinette. She was talkative and appreciaitve of being heard and affimred. She told me many stories about her family and her concerns about several who are quite ill. She is conerned about remaining in pain that is "sometimes unbearable." Advised speaking to RN/Physician about better pain management. Antoinette became tearful during prayer and apparently needed to vent some long-held memories. We had an easy rapport. [facility] [employer] will remain available.
--- NOTE | 2020-01-08 18:44 | NUR ---
PRIOR TO GIVE HYDRALAZINE BP CHECK 129/111. HELD. CALLED DR DALY. RE DIASTOLIC, NO NEW ORDERS. HOLD HYDRAL
--- NOTE | 2020-01-08 19:17 | NUR ---
PT QUITE PLEASANT TODAY. MEDICATED FOR PAIN PER EMAR. EPISODE OF HTN THIS AMRITA . HYDRAL ORDERED. NOT GIVEN BP LOWERED. DID WELL SITTING IN CHAIR. NO NEW CONCERNS AT THIS TIME. BED IN LOW POSITION, CALL LITE IN REACH, CALLS APPROP
[2020-01-09 05:49] LABS: BASOPHILS ABSOLUTE AUTO 0.02 K/mm3 (0.00-0.23); BASOPHILS PERCENT AUTO 0 % (0-2); EOSINOPHILS ABSOLUTE AUTO 0.04 K/mm3 (0.00-0.68); EOSINOPHILS PERCENT AUTO 0 % (0-6); Hematocrit 41.5 % (33.0-51.0); Hemoglobin 12.9 g/dL (11.5-16.0); IMMATURE GRAN ABSOLUTE AUTO 0.04 K/mm3 (0.00-0.10); IMMATURE GRAN PERCENT AUTO 0 % (0-1); LYMPHOCYTES ABSOLUTE AUTO 1.79 K/mm3 (0.84-5.20); LYMPHOCYTES PERCENT AUTO 17 % (21-46); MONOCYTES PERCENT AUTO 8 % (4-13); Mean Corpuscular HGB 27.7 pg (26.0-34.0); Mean Corpuscular HGB Conc 31.1 g/dL (31.5-36.5); Mean Corpuscular Volume 89 fL (80-100); Mean Platelet Volume 10.8 fL (9.1-12.4); NEUTROPHILS ABSOLUTE AUTO 7.79 K/mm3 (1.96-9.15); NEUTROPHILS PERCENT AUTO 74 % (41-73); Platelet Count 135 K/mm3 (150-400); RDW Coefficient Variation 13.6 % (11.7-14.2); RDW Standard Deviation 44.5 fL (35.1-46.3); Red Blood Cell Count 4.66 M/mm3 (3.80-5.20); White Blood Cell Count 10.48 K/mm3 (4.00-11.30)
[2020-01-09 06:06] LABS: Bun/Creatinine Ratio 20.8 (12.0-20.0); Calcium, Blood 8.4 mg/dL (8.5-10.1); Creatinine, Blood 1.01 mg/dL (0.40-1.00); Potassium, Blood 4.1 mmol/L (3.5-5.5)
--- NOTE | 2020-01-09 06:38 | NUR ---
01/09/20 0620 PT AWAKENED AND C/O LEVEL "9" LEFT RIB PAIN. MEDICATED NOW AND 2 OTHER TIMES FOR THIS PAIN. SLEPT WELL BETWEEN MEDICATIONS. ASSISTED WITH TURNING DUE TO SEVERE PAIN IN LEFT RIBS. INCONTINENT OF URINE. O2 REMAINS AT 2LPM VIA N/C.
--- NOTE | 2020-01-09 17:43 | NUR ---
SHIFT SUMMARY PT RESTING QUIETLY AT START OF SHIFT. ADMITTED FOR MULTIPLE RIB FX'S FROM FALL AT HOME. PT APPEARS TO BE COMFORTABLE WHEN SITTING OR LYING STILL, BUT GRIMACES IN PAIN WITH ANY MOVEMENT OR WHEN TALKING. PT MEDICATED FOR C/O PAIN PER EMAR. DECLINED TYLENOL TO ASSIST. SHALLOW RESPIRATIONS D/T RIB PAIN. ENCOURAGED DEEP BREATHING WHEN POSSIBLE. UP TO CHAIR FOR ALL MEALS. IN TO VISIT TODAY. CALL LT IN REACH. ABLE TO MAKE NEEDS KNOWN.
--- NOTE | 2020-01-10 04:13 | NUR ---
SHIFT SUMMARY PT HAS HAD NO ACUTE CHANGES THIS SHIFT, MEDICATED 2X FOR RIB/BACK PAIN (12/21), AMBULATED 1X TO BR DURING THE NIGHT, NO OTHER C/O ANY KIND, SLEPT T/O THE NIGHT, SLEEPING AT THIS TIME, CALL LIGHT IN REACH, WILL CONT TO MONITOR UNTIL EPORT GIVEN TO DAY RN.
[2020-01-10 05:16] LABS: BASOPHILS ABSOLUTE AUTO 0.03 K/mm3 (0.00-0.23); BASOPHILS PERCENT AUTO 0 % (0-2); EOSINOPHILS ABSOLUTE AUTO 0.06 K/mm3 (0.00-0.68); EOSINOPHILS PERCENT AUTO 1 % (0-6); Hematocrit 42.3 % (33.0-51.0); Hemoglobin 13.6 g/dL (11.5-16.0); IMMATURE GRAN ABSOLUTE AUTO 0.05 K/mm3 (0.00-0.10); IMMATURE GRAN PERCENT AUTO 1 % (0-1); LYMPHOCYTES ABSOLUTE AUTO 2.36 K/mm3 (0.84-5.20); LYMPHOCYTES PERCENT AUTO 23 % (21-46); MONOCYTES ABSOLUTE AUTO 0.75 K/mm3 (0.16-1.47); MONOCYTES PERCENT AUTO 7 % (4-13); Mean Corpuscular HGB 28.8 pg (26.0-34.0); Mean Corpuscular HGB Conc 32.2 g/dL (31.5-36.5); Mean Corpuscular Volume 89 fL (80-100); Mean Platelet Volume 10.7 fL (9.1-12.4); NEUTROPHILS ABSOLUTE AUTO 7.14 K/mm3 (1.96-9.15); NEUTROPHILS PERCENT AUTO 69 % (41-73); Platelet Count 129 K/mm3 (150-400); RDW Coefficient Variation 13.8 % (11.7-14.2); RDW Standard Deviation 45.2 fL (35.1-46.3); Red Blood Cell Count 4.73 M/mm3 (3.80-5.20); White Blood Cell Count 10.39 K/mm3 (4.00-11.30)
[2020-01-10 05:34] LABS: Anion Gap 5 mmol/L (6-16); Blood Urea Nitrogen 26 mg/dL (8-24); Bun/Creatinine Ratio 27.5 (12.0-20.0); CO2, Blood 30 mmol/L (21-32); Calcium, Blood 8.6 mg/dL (8.5-10.1); Chloride, Blood 102 mmol/L (98-108); Creatinine, Blood 0.95 mg/dL (0.40-1.00); Glomerular Filtration Rate >60 (60-); Glucose, Blood 108 mg/dL (70-99); Potassium, Blood 4.1 mmol/L (3.5-5.5); Sodium, Blood 137 mmol/L (136-145)
--- NOTE | 2020-01-10 17:03 | NUR ---
SHIFT SUMMARY PT A/O X4, PLEASANT, AND COOPERATIVE WITH CARE. MULTIPLE RIB FX FROM FALL AT HOME. WAS ORIGINALLY SCHEDULED FOR ABD HERNIA SURGERY BUT THE SURGERY HAS BEEN POSTPONED. PT VOCALIZED CONCERNS ABOUT DISCHARGING HOME W/HOME HEALTH DUE TO LACK OF HELP AT HOME. P/T WORKED WITH PT AND DEEMED HER APPRIPRIATE FOR SNF PLACEMENT. WILL POSSIBLY DC TO [facility] TOMORROW. HOME O2 EVAL NEEDED. EXPERIENCES SIGNIFICANT PAIN W/MOVEMENT. MEDICATED FOR PAIN PER EMR. VSS; RESTING IN BED COMFORTABLY. WILL CONTINUE TO MONITOR.
--- NOTE | 2020-01-11 04:41 | NUR ---
SHIFT SUMMARY PT HAS HAD NO ACUTE CHANGES THIS SHIFT, MEDICATED 1X FOR PAIN, NO OTHER C/O ANY KIND, SLEPT T/O THE NIGHT UNTIL 0230, SHOWERED & IS BEDRESTING WATCHING TV @ THIS TIME, CALL LIGHT IN REACH, WILL CONT TO MONITOR UNTIL REPORT GIVEN TO DAY RN.
[2020-01-11] MEDS ORDERED: ACET325 PO (10:46)
[2020-01-11] MEDS ORDERED: HYDR10 PO (10:47)
[2020-01-11] MEDS ORDERED: DOCU100 PO (10:47)
[2020-01-11] MEDS ORDERED: HYDR1TAB94 PO (10:48)
[2020-01-11] MEDS ORDERED: LIDO700A20 TOP (10:48)
[2020-01-11] MEDS ORDERED: ONDA4ODT MM (10:49)
[2020-01-11] MEDS ORDERED: SENN187 PO (10:50)
--- NOTE | 2020-01-11 11:32 | NUR ---
SNF PREFERENCE PATIENT HAS UPDATED HER SNF/REHAB PLACEMENT PREFERENCE TO [facility] TODAY SHE HAS FOUND OUT SHE HAS FRIENDS WHO ARE RESIDENTS THERE. HOSPITALIST AND VICKIE UPDATED.
--- NOTE | 2020-01-11 14:53 | NUR ---
DISCHARGE DISCHARGE TO [facility]. TRANSPORTED VIA GURNEY TRANSPORT. PACKET WITH GRAIN CLEANER. IV REMOVED WITHOUT ISSUE. BELONGINGS WITH PATIENT. FAMILY AWARE OF DISCHARGE. REPORT CALLED TO RECEIVING NURSE.
== END 2020-01-11 13:58 | DRG 183 ==
LOC: ER 15:32 → MEDS 15:33
PROVIDERS: Emergency Medicine; Family Medicine; ADMIT Internal Medicine
DX: S22.42XA Multiple fractures of ribs, left side, initial encounter for closed fracture (principal); J96.01 Acute respiratory failure with hypoxia; J44.9 Chronic obstructive pulmonary disease, unspecified; K21.9 Gastro-esophageal reflux disease without esophagitis; I10 Essential (primary) hypertension; G47.33 Obstructive sleep apnea (adult) (pediatric); Z86.718 Personal history of other venous thrombosis and embolism; Z79.01 Long term (current) use of anticoagulants; E66.01 Morbid (severe) obesity due to excess calories; Z91.19 Patient's noncompliance with other medical treatment and regimen; W19.XXXA Unspecified fall, initial encounter; Z96.642 Presence of left artificial hip joint; Z96.651 Presence of right artificial knee joint; Z87.891 Personal history of nicotine dependence
CPT/HCPCS: 36415; 70450; 71045; 71260; 72125; 74177; 80048; 80053; 85025; 93005; 93010; 94760; 94761; 96374; 96375; 97116; 97162; 97165; 97530; 97535; 99285-25; A9270; A9270-GY; G0378; J1170; J2270; Q9967; U0002

== ENCOUNTER 2020-02-07 20:41 | Emergency (ER) | payer MEDICARE ==
[~2020-02-07] VITALS: Ht 162.6 cm; Wt 102.1 kg
[~2020-02-07 20:41] MED LIST changes: +ACET325 PO; +B-121000 MC3 PO; +DOCU100 PO; +FISH OIL 1,2001 EAC7 PO; +HYDR10 PO; +HYDR1TAB94 PO; +K-Dur20 MEQ PO; +LIDO700A20 TOP; +NEBI5 PO; +OMEP20ER PO; +ONDA4ODT MM; +SENN187 PO; +XARELTO10 M1 PO
== END 2020-02-08 00:27 | disposition home or self-care (01) ==
LOC: ER 20:41
DX: S90.31XA Contusion of right foot, initial encounter (principal); Z88.8 Allergy status to other drugs, medicaments and biological substances; Z91.048 Other nonmedicinal substance allergy status; Z79.899 Other long term (current) drug therapy; J44.9 Chronic obstructive pulmonary disease, unspecified; I10 Essential (primary) hypertension; Z87.891 Personal history of nicotine dependence; W20.8XXA Other cause of strike by thrown, projected or falling object, initial encounter
CPT/HCPCS: 73630; 99283-25

== ENCOUNTER 2020-03-20 15:15 | Emergency (ER) | payer MEDICARE ==
[~2020-03-20] VITALS: Ht 162.6 cm; Wt 100.7 kg
[2020-03-20 16:07] LABS: BASOPHILS ABSOLUTE AUTO 0.03 K/mm3 (0.00-0.23); BASOPHILS PERCENT AUTO 0 % (0-2); EOSINOPHILS ABSOLUTE AUTO 0.07 K/mm3 (0.00-0.68); EOSINOPHILS PERCENT AUTO 1 % (0-6); Hematocrit 45.8 % (33.0-51.0); Hemoglobin 14.5 g/dL (11.5-16.0); IMMATURE GRAN ABSOLUTE AUTO 0.03 K/mm3 (0.00-0.10); IMMATURE GRAN PERCENT AUTO 0 % (0-1); LYMPHOCYTES ABSOLUTE AUTO 2.91 K/mm3 (0.84-5.20); LYMPHOCYTES PERCENT AUTO 30 % (21-46); MONOCYTES ABSOLUTE AUTO 0.56 K/mm3 (0.16-1.47); MONOCYTES PERCENT AUTO 6 % (4-13); Mean Corpuscular HGB 27.6 pg (26.0-34.0); Mean Corpuscular HGB Conc 31.7 g/dL (31.5-36.5); Mean Corpuscular Volume 87 fL (80-100); Mean Platelet Volume 10.7 fL (9.1-12.4); NEUTROPHILS PERCENT AUTO 63 % (41-73); Platelet Count 206 K/mm3 (150-400); RDW Coefficient Variation 13.6 % (11.7-14.2); RDW Standard Deviation 43.3 fL (35.1-46.3); Red Blood Cell Count 5.25 M/mm3 (3.80-5.20)
[2020-03-20 16:27] LABS: Albumin, Blood 3.4 g/dL (3.4-5.0); Albumin/Globulin Ratio 0.6 (0.8-1.8); Bilirubin, Total 0.7 mg/dL (0.1-1.0); Bun/Creatinine Ratio 13.3 (12.0-20.0); Creatinine, Blood 0.98 mg/dL (0.40-1.00); Globulin, Blood 5.6 g/dL (2.2-4.0); Potassium, Blood 4.3 mmol/L (3.5-5.5)
[2020-03-20] MEDS ORDERED: MOTION RELIEF25 MG PO (18:20)
== END 2020-03-20 18:44 | disposition home or self-care (01) ==
LOC: ER 15:15
PROVIDERS: Emergency Medicine
DX: R42 Dizziness and giddiness (principal); I10 Essential (primary) hypertension; J44.9 Chronic obstructive pulmonary disease, unspecified; K21.9 Gastro-esophageal reflux disease without esophagitis; Z91.09 Other allergy status, other than to drugs and biological substances; Z88.6 Allergy status to analgesic agent; Z88.8 Allergy status to other drugs, medicaments and biological substances; Z79.01 Long term (current) use of anticoagulants; Z79.899 Other long term (current) drug therapy; Z86.718 Personal history of other venous thrombosis and embolism; Z87.891 Personal history of nicotine dependence
CPT/HCPCS: 36415; 80053; 83735; 85025; 93005; 93010; 99284-25

== ENCOUNTER 2020-08-07 15:33 | Emergency (ER) | payer MEDICARE ==
[~2020-08-07] VITALS: Ht 162.6 cm; Wt 102.1 kg
[~2020-08-07 15:33] MED LIST changes: +MOTION RELIEF25 MG PO
[2020-08-07 16:07] LABS: BASOPHILS ABSOLUTE AUTO 0.04 K/mm3 (0.00-0.23); BASOPHILS PERCENT AUTO 0 % (0-2); EOSINOPHILS ABSOLUTE AUTO 0.06 K/mm3 (0.00-0.68); EOSINOPHILS PERCENT AUTO 1 % (0-6); Hematocrit 44.3 % (33.0-51.0); Hemoglobin 14.3 g/dL (11.5-16.0); IMMATURE GRAN ABSOLUTE AUTO 0.04 K/mm3 (0.00-0.10); IMMATURE GRAN PERCENT AUTO 0 % (0-1); LYMPHOCYTES ABSOLUTE AUTO 3.44 K/mm3 (0.84-5.20); LYMPHOCYTES PERCENT AUTO 32 % (21-46); MONOCYTES ABSOLUTE AUTO 0.73 K/mm3 (0.16-1.47); MONOCYTES PERCENT AUTO 7 % (4-13); Mean Corpuscular HGB 28.5 pg (26.0-34.0); Mean Corpuscular HGB Conc 32.3 g/dL (31.5-36.5); Mean Corpuscular Volume 88 fL (80-100); Mean Platelet Volume 10.3 fL (9.1-12.4); NEUTROPHILS ABSOLUTE AUTO 6.59 K/mm3 (1.96-9.15); NEUTROPHILS PERCENT AUTO 60 % (41-73); Platelet Count 177 K/mm3 (150-400); RDW Coefficient Variation 14.2 % (11.7-14.2); RDW Standard Deviation 45.3 fL (35.1-46.3); Red Blood Cell Count 5.01 M/mm3 (3.80-5.20)
[2020-08-07 16:30] LABS: Alanine Aminotransfer (ALT/SGP 32 U/L (12-78); Albumin, Blood 3.2 g/dL (3.4-5.0); Albumin/Globulin Ratio 0.6 (0.8-1.8); Alk Phos 124 U/L (50-136); Anion Gap 3 mmol/L (6-16); Aspartate Aminotrans (AST/SGOT 25 U/L (12-37); Bilirubin, Total 0.5 mg/dL (0.1-1.0); Blood Urea Nitrogen 24 mg/dL (8-24); Bun/Creatinine Ratio 29.3 (12.0-20.0); CO2, Blood 28 mmol/L (21-32); Calcium, Blood 8.5 mg/dL (8.5-10.1); Chloride, Blood 110 mmol/L (98-108); Creatinine, Blood 0.82 mg/dL (0.40-1.00); Globulin, Blood 5.2 g/dL (2.2-4.0); Glomerular Filtration Rate >60 (60-); Glucose, Blood 96 mg/dL (70-99); Potassium, Blood 4.1 mmol/L (3.5-5.5); Sodium, Blood 141 mmol/L (136-145); Total Protein, Blood 8.4 g/dL (6.4-8.2)
== END 2020-08-07 18:03 | disposition home or self-care (01) ==
LOC: ER 15:33
PROVIDERS: Physician Assistant
DX: K43.9 Ventral hernia without obstruction or gangrene (principal); Z79.899 Other long term (current) drug therapy
CPT/HCPCS: 36415; 74176; 80053; 83690; 85025; 99284-25

== ENCOUNTER → 2020-12-14 | Outpatient (CLI) | payer MEDICARE | END | disposition home or self-care (01) | LOC: LAB SHORT 14:44 → LAB 14:44 | DX: D48.5 Neoplasm of uncertain behavior of skin (principal) | CPT/HCPCS: 88305 ==

== ENCOUNTER 2021-04-24 05:57 | Emergency (ER) | payer MEDICARE ==
[~2021-04-24] VITALS: Ht 162.6 cm; Wt 99.8 kg
[2021-04-24 07:07] LABS: BASOPHILS ABSOLUTE AUTO 0.05 K/mm3 (0.00-0.23); BASOPHILS PERCENT AUTO 1 % (0-2); EOSINOPHILS ABSOLUTE AUTO 0.09 K/mm3 (0.00-0.68); EOSINOPHILS PERCENT AUTO 1 % (0-6); Hematocrit 43.4 % (33.0-51.0); IMMATURE GRAN ABSOLUTE AUTO 0.02 K/mm3 (0.00-0.10); IMMATURE GRAN PERCENT AUTO 0 % (0-1); LYMPHOCYTES ABSOLUTE AUTO 2.22 K/mm3 (0.84-5.20); LYMPHOCYTES PERCENT AUTO 30 % (21-46); MONOCYTES ABSOLUTE AUTO 0.51 K/mm3 (0.16-1.47); MONOCYTES PERCENT AUTO 7 % (4-13); Mean Corpuscular HGB 27.9 pg (26.0-34.0); Mean Corpuscular HGB Conc 32.3 g/dL (31.5-36.5); Mean Corpuscular Volume 87 fL (80-100); Mean Platelet Volume 9.8 fL (9.1-12.4); NEUTROPHILS ABSOLUTE AUTO 4.56 K/mm3 (1.96-9.15); NEUTROPHILS PERCENT AUTO 61 % (41-73); Platelet Count 167 K/mm3 (150-400); RDW Coefficient Variation 14.2 % (11.7-14.2); RDW Standard Deviation 45.1 fL (35.1-46.3); Red Blood Cell Count 5.01 M/mm3 (3.80-5.20); White Blood Cell Count 7.45 K/mm3 (4.00-11.30)
[2021-04-24 07:27] LABS: Alanine Aminotransfer (ALT/SGP 21 U/L (12-78); Albumin, Blood 3.1 g/dL (3.4-5.0); Albumin/Globulin Ratio 0.6 (0.8-1.8); Alk Phos 75 U/L (50-136); Anion Gap 6 mmol/L (6-16); Aspartate Aminotrans (AST/SGOT 20 U/L (12-37); Bilirubin, Total 0.7 mg/dL (0.1-1.0); Blood Urea Nitrogen 16 mg/dL (8-24); Bun/Creatinine Ratio 17.9 (12.0-20.0); CO2, Blood 29 mmol/L (21-32); Calcium, Blood 9.1 mg/dL (8.5-10.1); Chloride, Blood 105 mmol/L (98-108); Creatinine, Blood 0.89 mg/dL (0.40-1.00); Globulin, Blood 5.2 g/dL (2.2-4.0); Glomerular Filtration Rate >60 (60-); Glucose, Blood 124 mg/dL (70-99); Potassium, Blood 3.2 mmol/L (3.5-5.5); Sodium, Blood 140 mmol/L (136-145); Total Protein, Blood 8.3 g/dL (6.4-8.2)
[2021-04-24 08:33] LABS: Influenza A, PCR NEGATIVE (NEGATIVE); Influenza B, PCR NEGATIVE (NEGATIVE); Resp Syncytial Virus, PCR NEGATIVE (NEGATIVE); SARS-Cov-2 (COVID-19) PCR, MMC NEGATIVE (NEGATIVE)
[2021-04-24] MEDS ORDERED: PRED20 PO (10:00)
[2021-04-24] MEDS ORDERED: AZIT250 PO (10:00)
== END 2021-04-24 10:23 | disposition home or self-care (01) ==
LOC: ER 05:57
PROVIDERS: Emergency Medicine
DX: J44.1 Chronic obstructive pulmonary disease with (acute) exacerbation (principal); J06.9 Acute upper respiratory infection, unspecified; Z20.822 Contact with and (suspected) exposure to COVID-19; K21.9 Gastro-esophageal reflux disease without esophagitis; I10 Essential (primary) hypertension; Z79.899 Other long term (current) drug therapy; Z87.891 Personal history of nicotine dependence; Z88.8 Allergy status to other drugs, medicaments and biological substances
CPT/HCPCS: 0241U; 36415; 71045; 80053; 83880; 84484; 85025; 93005; 93010; 99284-25

== ENCOUNTER → 2021-07-06 | Outpatient (CLI) | payer MEDICARE ==
[~2021-07-06] MED LIST changes: +PRED20 PO
== END | disposition home or self-care (01) ==
LOC: LAB SHORT 11:16 → PLD 11:16
DX: D22.39 Melanocytic nevi of other parts of face (principal)
CPT/HCPCS: 88305

== ENCOUNTER 2022-05-06 12:59 | Emergency (ER) | payer MEDICARE ==
[~2022-05-06] VITALS: Ht 162.6 cm; Wt 99.8 kg
[~2022-05-06 12:59] MED LIST changes: +CEFD300 PO; +CEPH500 PO; +Pyridium200 MG PO
[2022-05-06 14:42] LABS: BASOPHILS ABSOLUTE AUTO 0.04 K/mm3 (0.00-0.23); BASOPHILS PERCENT AUTO 1 % (0-2); EOSINOPHILS ABSOLUTE AUTO 0.02 K/mm3 (0.00-0.68); EOSINOPHILS PERCENT AUTO 0 % (0-6); Hematocrit 46.6 % (33.0-51.0); IMMATURE GRAN PERCENT AUTO 1 % (0-1); LYMPHOCYTES ABSOLUTE AUTO 1.25 K/mm3 (0.84-5.20); LYMPHOCYTES PERCENT AUTO 16 % (21-46); MONOCYTES PERCENT AUTO 5 % (4-13); Mean Corpuscular HGB Conc 32.2 g/dL (31.5-36.5); Mean Corpuscular Volume 87 fL (80-100); Mean Platelet Volume 10.2 fL (9.1-12.4); NEUTROPHILS ABSOLUTE AUTO 5.95 K/mm3 (1.96-9.15); NEUTROPHILS PERCENT AUTO 77 % (41-73); Platelet Count 175 K/mm3 (150-400); RDW Coefficient Variation 13.6 % (11.7-14.2); RDW Standard Deviation 43.1 fL (35.1-46.3); Red Blood Cell Count 5.35 M/mm3 (3.80-5.20); White Blood Cell Count 7.76 K/mm3 (4.00-11.30)
[2022-05-06 15:17] LABS: Albumin, Blood 3.1 g/dL (3.4-5.0); Albumin/Globulin Ratio 0.6 (0.8-1.8); Bilirubin, Total 0.6 mg/dL (0.1-1.0); Bun/Creatinine Ratio 19.4 (12.0-20.0); Creatinine, Blood 0.93 mg/dL (0.40-1.00); Globulin, Blood 5.1 g/dL (2.2-4.0); Potassium, Blood 3.3 mmol/L (3.5-5.5); Total Protein, Blood 8.2 g/dL (6.4-8.2)
== END 2022-05-06 17:00 | disposition short-term general hospital (02) ==
LOC: ER 12:59
PROVIDERS: Student in an Organized Health Care Education/Training Program
DX: I60.9 Nontraumatic subarachnoid hemorrhage, unspecified (principal); I10 Essential (primary) hypertension; J44.9 Chronic obstructive pulmonary disease, unspecified; K21.9 Gastro-esophageal reflux disease without esophagitis; W19.XXXA Unspecified fall, initial encounter; Z79.899 Other long term (current) drug therapy; Z88.6 Allergy status to analgesic agent; Z88.8 Allergy status to other drugs, medicaments and biological substances; Z91.09 Other allergy status, other than to drugs and biological substances; Z79.02 Long term (current) use of antithrombotics/antiplatelets; Z79.52 Long term (current) use of systemic steroids; Z87.891 Personal history of nicotine dependence; Z96.652 Presence of left artificial knee joint; Z96.642 Presence of left artificial hip joint
CPT/HCPCS: 70450; 72070; 80053; 83690; 84484; 85025; 93005; 93010; A9270; J3010; J7168

== ENCOUNTER → 2022-07-24 | Outpatient (CLI) | payer MEDICARE ==
[2022-07-24 16:02] LABS: BASOPHILS ABSOLUTE AUTO 0.04 K/mm3 (0.00-0.23); BASOPHILS PERCENT AUTO 1 % (0-2); EOSINOPHILS ABSOLUTE AUTO 0.12 K/mm3 (0.00-0.68); EOSINOPHILS PERCENT AUTO 1 % (0-6); Hemoglobin 13.8 g/dL (11.5-16.0); IMMATURE GRAN ABSOLUTE AUTO 0.02 K/mm3 (0.00-0.10); IMMATURE GRAN PERCENT AUTO 0 % (0-1); LYMPHOCYTES PERCENT AUTO 39 % (21-46); MONOCYTES ABSOLUTE AUTO 0.63 K/mm3 (0.16-1.47); MONOCYTES PERCENT AUTO 8 % (4-13); Mean Corpuscular HGB 27.9 pg (26.0-34.0); Mean Corpuscular HGB Conc 32.1 g/dL (31.5-36.5); Mean Corpuscular Volume 87 fL (80-100); Mean Platelet Volume 10.3 fL (9.1-12.4); NEUTROPHILS PERCENT AUTO 52 % (41-73); Platelet Count 196 K/mm3 (150-400); RDW Coefficient Variation 13.9 % (11.7-14.2); RDW Standard Deviation 44.2 fL (35.1-46.3); Red Blood Cell Count 4.94 M/mm3 (3.80-5.20); White Blood Cell Count 8.31 K/mm3 (4.00-11.30)
[2022-07-25 03:10] LABS: Alanine Aminotransfer (ALT/SGP 25 U/L (12-78); Albumin, Blood 3.2 g/dL (3.4-5.0); Albumin/Globulin Ratio 0.6 (0.8-1.8); Alk Phos 87 U/L (50-136); Anion Gap 2 mmol/L (6-16); Aspartate Aminotrans (AST/SGOT 21 U/L (12-37); Bilirubin, Total 0.4 mg/dL (0.1-1.0); Blood Urea Nitrogen 19 mg/dL (8-24); Bun/Creatinine Ratio 22.3 (12.0-20.0); CHOL/HDL RATIO 3.9; CO2, Blood 34 mmol/L (21-32); Calcium, Blood 9.2 mg/dL (8.5-10.1); Chloride, Blood 102 mmol/L (98-108); Cholesterol 171 mg/dL (50-200); Creatinine, Blood 0.85 mg/dL (0.40-1.00); Glomerular Filtration Rate 73 (60-); Glucose, Blood 115 mg/dL (70-99); HDL Cholesterol 44 mg/dL (>39); Low Density Lipoprotein Chol 87 mg/dL (0-110); Magnesium, Blood 1.7 mg/dL (1.6-2.4); Sodium, Blood 138 mmol/L (136-145); Thyroid Stimulating Hormone 0.505 uIU/mL (0.360-4.800); Total Protein, Blood 8.2 g/dL (6.4-8.2); Triglycerides 200 mg/dL (30-160); Very Low Density Lipoprot Chol 40 mg/dL (6-32)
== END | disposition home or self-care (01) ==
LOC: LAB SHORT 13:39 → LAB 13:39
PROVIDERS: Family Medicine
DX: Z13.1 Encounter for screening for diabetes mellitus (principal); I10 Essential (primary) hypertension; E78.5 Hyperlipidemia, unspecified; I27.20 Pulmonary hypertension, unspecified; R41.3 Other amnesia; M79.7 Fibromyalgia; Z87.440 Personal history of urinary (tract) infections
CPT/HCPCS: 80053; 80061; 82607; 82746; 83735; 84443; 85025; 86592

== ENCOUNTER 2022-09-02 16:57 | Emergency (ER) | payer MEDICARE ==
[~2022-09-02] VITALS: Ht 162.6 cm; Wt 99.3 kg
[2022-09-02 17:02] VITALS: BP 148/94
[2022-09-02] MEDS ORDERED: ERYT.5TO BOTHEYES (18:42)
== END 2022-09-02 19:00 | disposition home or self-care (01) ==
LOC: ER 16:57
DX: H10.023 Other mucopurulent conjunctivitis, bilateral (principal); Z88.8 Allergy status to other drugs, medicaments and biological substances; Z91.048 Other nonmedicinal substance allergy status; Z79.899 Other long term (current) drug therapy; Z79.52 Long term (current) use of systemic steroids; I10 Essential (primary) hypertension; M19.90 Unspecified osteoarthritis, unspecified site; J44.9 Chronic obstructive pulmonary disease, unspecified; K21.9 Gastro-esophageal reflux disease without esophagitis; G47.30 Sleep apnea, unspecified; Z87.891 Personal history of nicotine dependence
CPT/HCPCS: 99282; A9270

== ENCOUNTER 2022-12-23 22:22 | Emergency (ER) | payer OTHER, MEDICARE ==
[~2022-12-23] VITALS: Ht 167.6 cm; Wt 108.4 kg
[~2022-12-23 22:22] MED LIST changes: +ERYT.5TO BOTHEYES
[2022-12-23 22:38] VITALS: BP 157/106
== END 2022-12-24 00:41 | disposition home or self-care (01) ==
LOC: ER 22:22
DX: S33.8XXA Sprain of other parts of lumbar spine and pelvis, initial encounter (principal); S00.03XA Contusion of scalp, initial encounter; V89.9XXA Person injured in unspecified vehicle accident, initial encounter; I10 Essential (primary) hypertension; M19.90 Unspecified osteoarthritis, unspecified site; J44.9 Chronic obstructive pulmonary disease, unspecified; K21.9 Gastro-esophageal reflux disease without esophagitis; G47.30 Sleep apnea, unspecified; Z88.8 Allergy status to other drugs, medicaments and biological substances; Z91.048 Other nonmedicinal substance allergy status; Z79.899 Other long term (current) drug therapy; Z79.52 Long term (current) use of systemic steroids; Z87.891 Personal history of nicotine dependence
CPT/HCPCS: 70450; 99284-25

== ENCOUNTER 2023-01-09 12:01 | Emergency (ER) | payer MEDICARE ==
[~2023-01-09] VITALS: Ht 162.6 cm; Wt 93.4 kg
[2023-01-09 12:05] VITALS: BP 104/71
[2023-01-09] MEDS ORDERED: CODACE30 PO (14:59)
[2023-01-09] MEDS ORDERED: TIZA4 PO (15:00)
== END 2023-01-09 15:00 | disposition home or self-care (01) ==
LOC: ER 12:01
DX: M54.50 Low back pain, unspecified (principal); I10 Essential (primary) hypertension; K21.9 Gastro-esophageal reflux disease without esophagitis; J44.9 Chronic obstructive pulmonary disease, unspecified; Z87.891 Personal history of nicotine dependence; Z88.8 Allergy status to other drugs, medicaments and biological substances; Z91.048 Other nonmedicinal substance allergy status; Z79.899 Other long term (current) drug therapy; Z79.01 Long term (current) use of anticoagulants
CPT/HCPCS: 72100; 99283-25

== ENCOUNTER 2023-04-03 14:09 | Emergency (ER) | payer MEDICARE ==
[~2023-04-03] VITALS: Ht 167.6 cm; Wt 117.9 kg
[~2023-04-03 14:09] MED LIST changes: +CODACE30 PO; +TIZA4 PO
[2023-04-03 15:17] LABS: Source, Urine Straight Cath
[2023-04-03 15:33] LABS: BASOPHILS ABSOLUTE AUTO 0.03 K/mm3 (0.00-0.23); BASOPHILS PERCENT AUTO 0 % (0-2); EOSINOPHILS PERCENT AUTO 0 % (0-6); Hematocrit 44.2 % (33.0-51.0); Hemoglobin 14.9 g/dL (11.5-16.0); IMMATURE GRAN ABSOLUTE AUTO 0.05 K/mm3 (0.00-0.10); IMMATURE GRAN PERCENT AUTO 0 % (0-1); LYMPHOCYTES ABSOLUTE AUTO 1.74 K/mm3 (0.84-5.20); LYMPHOCYTES PERCENT AUTO 13 % (21-46); MONOCYTES ABSOLUTE AUTO 0.69 K/mm3 (0.16-1.47); MONOCYTES PERCENT AUTO 5 % (4-13); Mean Corpuscular HGB 28.9 pg (26.0-34.0); Mean Corpuscular HGB Conc 33.7 g/dL (31.5-36.5); Mean Corpuscular Volume 86 fL (80-100); Mean Platelet Volume 10.5 fL (9.1-12.4); NEUTROPHILS ABSOLUTE AUTO 11.07 K/mm3 (1.96-9.15); NEUTROPHILS PERCENT AUTO 82 % (41-73); Platelet Count 192 K/mm3 (150-400); RDW Coefficient Variation 13.2 % (11.7-14.2); RDW Standard Deviation 41.1 fL (35.1-46.3); Red Blood Cell Count 5.16 M/mm3 (3.80-5.20); White Blood Cell Count 13.58 K/mm3 (4.00-11.30)
[2023-04-03 15:44] LABS: Appearance, Urine Cloudy (Clear); Bilirubin, Urine Neg (Neg); Blood, Urine 1+ (Neg); Color, Urine Yellow (P-Yellow); Glucose Qualitative, Urine Neg (Neg); Ketones, Urine Neg (Neg); Leukocyte Esterase, Urine 2+ (Neg); Nitrite, Urine Pos (Neg); Protein, Urine 2+ (Neg); Urobilinogen, Urine NORM (Normal)
[2023-04-03 15:54] LABS: Bacteria Many /hpf; Red Blood Cells, Urine 0-2 /hpf (0-2); Squamous Epithelial Cells Few /hpf (Few)
[2023-04-03 16:21] LABS: Albumin, Blood 3.2 g/dL (3.4-5.0); Albumin/Globulin Ratio 0.6 (0.8-1.8); Bilirubin, Total 0.6 mg/dL (0.1-1.0); Bun/Creatinine Ratio 15.6 (12.0-20.0); Calcium, Blood 9.2 mg/dL (8.5-10.1); Creatinine, Blood 1.09 mg/dL (0.40-1.00); Globulin, Blood 5.4 g/dL (2.2-4.0); Potassium, Blood 3.7 mmol/L (3.5-5.5); Total Protein, Blood 8.6 g/dL (6.4-8.2)
[2023-04-03] MEDS ORDERED: CEFD300 PO (16:37)
[2023-04-03 17:03] VITALS: BP 149/86
== END 2023-04-03 17:10 | disposition home or self-care (01) ==
LOC: ER 14:09
PROVIDERS: Emergency Medicine
DX: N39.0 Urinary tract infection, site not specified (principal); R00.0 Tachycardia, unspecified; Z87.891 Personal history of nicotine dependence; J44.9 Chronic obstructive pulmonary disease, unspecified; K21.9 Gastro-esophageal reflux disease without esophagitis; I10 Essential (primary) hypertension; M19.90 Unspecified osteoarthritis, unspecified site; M81.0 Age-related osteoporosis without current pathological fracture; G47.30 Sleep apnea, unspecified; Z79.52 Long term (current) use of systemic steroids; Z79.2 Long term (current) use of antibiotics; Z79.01 Long term (current) use of anticoagulants; Z79.899 Other long term (current) drug therapy; Z88.8 Allergy status to other drugs, medicaments and biological substances; Z91.048 Other nonmedicinal substance allergy status
CPT/HCPCS: 51701; 71046; 80053; 81001; 83605; 85025; 87077; 87086; 87186; 93005; 93010; 96365; 99285-25; J0696

== ENCOUNTER 2023-04-26 13:20 | Emergency (ER) | payer MEDICARE ==
[~2023-04-26] VITALS: Ht 162.6 cm; Wt 94.8 kg
[2023-04-26 13:28] VITALS: BP 218/122
== END 2023-04-26 15:01 | disposition home or self-care (01) ==
LOC: ER 13:20
DX: M25.562 Pain in left knee (principal); I10 Essential (primary) hypertension; J44.9 Chronic obstructive pulmonary disease, unspecified; M19.90 Unspecified osteoarthritis, unspecified site; M81.0 Age-related osteoporosis without current pathological fracture; K21.9 Gastro-esophageal reflux disease without esophagitis; G47.30 Sleep apnea, unspecified; M79.7 Fibromyalgia; Z87.891 Personal history of nicotine dependence; Z79.01 Long term (current) use of anticoagulants; Z79.899 Other long term (current) drug therapy; Z79.52 Long term (current) use of systemic steroids; Z88.8 Allergy status to other drugs, medicaments and biological substances; Z88.6 Allergy status to analgesic agent; Z91.09 Other allergy status, other than to drugs and biological substances; W18.39XA Other fall on same level, initial encounter; Y93.01 Activity, walking, marching and hiking
CPT/HCPCS: 73562-LT; 99283-25; A9270

== ENCOUNTER 2023-04-29 15:11 | Emergency (ER) | payer MEDICARE ==
[~2023-04-29] VITALS: Ht 172.7 cm; Wt 113.4 kg
[2023-04-29 16:06] LABS: BASOPHILS ABSOLUTE AUTO 0.03 K/mm3 (0.00-0.23); BASOPHILS PERCENT AUTO 0 % (0-2); EOSINOPHILS ABSOLUTE AUTO 0.04 K/mm3 (0.00-0.68); EOSINOPHILS PERCENT AUTO 1 % (0-6); Hematocrit 49.4 % (33.0-51.0); IMMATURE GRAN ABSOLUTE AUTO 0.03 K/mm3 (0.00-0.10); IMMATURE GRAN PERCENT AUTO 0 % (0-1); LYMPHOCYTES ABSOLUTE AUTO 2.24 K/mm3 (0.84-5.20); LYMPHOCYTES PERCENT AUTO 25 % (21-46); MONOCYTES ABSOLUTE AUTO 0.39 K/mm3 (0.16-1.47); MONOCYTES PERCENT AUTO 4 % (4-13); Mean Corpuscular HGB 28.1 pg (26.0-34.0); Mean Corpuscular HGB Conc 32.4 g/dL (31.5-36.5); Mean Corpuscular Volume 87 fL (80-100); NEUTROPHILS ABSOLUTE AUTO 6.14 K/mm3 (1.96-9.15); NEUTROPHILS PERCENT AUTO 69 % (41-73); Platelet Count 177 K/mm3 (150-400); RDW Coefficient Variation 13.4 % (11.7-14.2); RDW Standard Deviation 42.3 fL (35.1-46.3); Red Blood Cell Count 5.69 M/mm3 (3.80-5.20); White Blood Cell Count 8.87 K/mm3 (4.00-11.30)
[2023-04-29 16:19] LABS: Albumin, Blood 3.3 g/dL (3.4-5.0); Albumin/Globulin Ratio 0.6 (0.8-1.8); Bilirubin, Total 0.7 mg/dL (0.1-1.0); Bun/Creatinine Ratio 18.6 (12.0-20.0); Calcium, Blood 9.1 mg/dL (8.5-10.1); Creatinine, Blood 1.13 mg/dL (0.40-1.00); Globulin, Blood 5.3 g/dL (2.2-4.0); Potassium, Blood 3.2 mmol/L (3.5-5.5); Total Protein, Blood 8.6 g/dL (6.4-8.2)
[2023-04-29 17:30] VITALS: BP 182/106
== END 2023-04-29 18:05 | disposition home or self-care (01) ==
LOC: ER 15:11
PROVIDERS: Emergency Medicine
DX: R53.1 Weakness (principal); R62.7 Adult failure to thrive; I10 Essential (primary) hypertension; J44.9 Chronic obstructive pulmonary disease, unspecified; K21.9 Gastro-esophageal reflux disease without esophagitis; Z88.8 Allergy status to other drugs, medicaments and biological substances; Z91.048 Other nonmedicinal substance allergy status; Z79.01 Long term (current) use of anticoagulants; Z79.899 Other long term (current) drug therapy; Z87.891 Personal history of nicotine dependence
CPT/HCPCS: 80053; 85025; 93005; 93010; 99285-25

== ENCOUNTER 2023-05-04 16:25 | Observation (INO) | payer MEDICARE ==
[~2023-05-04] VITALS: Ht 162.6 cm; Wt 93.6 kg
[2023-05-04 17:34] LABS: BASOPHILS ABSOLUTE AUTO 0.05 K/mm3 (0.00-0.23); BASOPHILS PERCENT AUTO 1 % (0-2); EOSINOPHILS ABSOLUTE AUTO 0.06 K/mm3 (0.00-0.68); EOSINOPHILS PERCENT AUTO 1 % (0-6); Hematocrit 47.3 % (33.0-51.0); Hemoglobin 15.6 g/dL (11.5-16.0); IMMATURE GRAN ABSOLUTE AUTO 0.03 K/mm3 (0.00-0.10); IMMATURE GRAN PERCENT AUTO 0 % (0-1); LYMPHOCYTES ABSOLUTE AUTO 2.38 K/mm3 (0.84-5.20); LYMPHOCYTES PERCENT AUTO 23 % (21-46); MONOCYTES ABSOLUTE AUTO 0.49 K/mm3 (0.16-1.47); MONOCYTES PERCENT AUTO 5 % (4-13); Mean Corpuscular HGB 28.4 pg (26.0-34.0); Mean Corpuscular Volume 86 fL (80-100); Mean Platelet Volume 10.6 fL (9.1-12.4); NEUTROPHILS ABSOLUTE AUTO 7.51 K/mm3 (1.96-9.15); NEUTROPHILS PERCENT AUTO 71 % (41-73); Platelet Count 214 K/mm3 (150-400); RDW Coefficient Variation 13.5 % (11.7-14.2); RDW Standard Deviation 42.5 fL (35.1-46.3); White Blood Cell Count 10.52 K/mm3 (4.00-11.30)
[2023-05-04 17:58] LABS: Albumin, Blood 3.3 g/dL (3.4-5.0); Albumin/Globulin Ratio 0.6 (0.8-1.8); Bilirubin, Total 0.6 mg/dL (0.1-1.0); Bun/Creatinine Ratio 22.5 (12.0-20.0); Calcium, Blood 8.8 mg/dL (8.5-10.1); Creatinine, Blood 1.02 mg/dL (0.40-1.00); Globulin, Blood 5.4 g/dL (2.2-4.0); Potassium, Blood 3.7 mmol/L (3.5-5.5); Total Protein, Blood 8.7 g/dL (6.4-8.2)
[2023-05-04 21:09] LABS: Source, Urine Clean Catch
[2023-05-04 21:15] LABS: Appearance, Urine Cloudy (Clear); Bilirubin, Urine Neg (Neg); Blood, Urine Neg (Neg); Color, Urine Yellow (P-Yellow); Glucose Qualitative, Urine Neg (Neg); Ketones, Urine Neg (Neg); Leukocyte Esterase, Urine Neg (Neg); Nitrite, Urine Neg (Neg); Protein, Urine 2+ (Neg); Specific Gravity, Urine 1.015 (1.003-1.022); Urobilinogen, Urine NORM (Normal)
[2023-05-04 21:32] LABS: Red Blood Cells, Urine Not Seen /hpf (0-2); Squamous Epithelial Cells Few /hpf (Few)
[2023-05-04 21:33] LABS: Amorphous Heavy (0-Heavy); Bacteria Many /hpf; Triple Phosphate Crystals Few /hpf
[2023-05-04 23:06] LABS: Magnesium, Blood 1.8 mg/dL (1.6-2.4); Thyroid Stimulating Hormone 1.24 uIU/mL (0.360-4.800)
[2023-05-04 23:16] LABS: Influenza A, PCR NEGATIVE (NEGATIVE); Influenza B, PCR NEGATIVE (NEGATIVE); Resp Syncytial Virus, PCR NEGATIVE (NEGATIVE); SARS-Cov-2 (COVID-19) PCR, MMC NEGATIVE (NEGATIVE)
[2023-05-05 00:22] LABS: Free Thyroxine 1.3 ng/dL (0.70-1.60)
[2023-05-05 02:01] VITALS: BP 154/90
--- NOTE | 2023-05-05 04:53 | NUR ---
NOC SHIFT SUMMARY: PT. ALERT AND ORIENTED X4. CALLS APPROPRIATELY. MICONAZOLE POWDER TO BILATERAL BREASTS AND GROIN AREA. QUEZADA IN PLACE DUE TO EXOCRIATION. NO C/O PAIN. MULTIPLE SKIN ISSUES. LIVES AT HOME WITH FAMILY. WOULD LIKE TO GO TO [facility] ON DISCHARGE. BED IN LOW POSITION. CALL LIGHT WITHIN REACH
[2023-05-05 05:43] LABS: BASOPHILS ABSOLUTE AUTO 0.04 K/mm3 (0.00-0.23); BASOPHILS PERCENT AUTO 1 % (0-2); EOSINOPHILS ABSOLUTE AUTO 0.06 K/mm3 (0.00-0.68); EOSINOPHILS PERCENT AUTO 1 % (0-6); Hematocrit 44.7 % (33.0-51.0); Hemoglobin 14.5 g/dL (11.5-16.0); IMMATURE GRAN ABSOLUTE AUTO 0.02 K/mm3 (0.00-0.10); IMMATURE GRAN PERCENT AUTO 0 % (0-1); LYMPHOCYTES ABSOLUTE AUTO 3.35 K/mm3 (0.84-5.20); LYMPHOCYTES PERCENT AUTO 39 % (21-46); MONOCYTES ABSOLUTE AUTO 0.54 K/mm3 (0.16-1.47); MONOCYTES PERCENT AUTO 6 % (4-13); Mean Corpuscular HGB 28.4 pg (26.0-34.0); Mean Corpuscular HGB Conc 32.4 g/dL (31.5-36.5); Mean Corpuscular Volume 88 fL (80-100); Mean Platelet Volume 9.9 fL (9.1-12.4); NEUTROPHILS ABSOLUTE AUTO 4.67 K/mm3 (1.96-9.15); NEUTROPHILS PERCENT AUTO 54 % (41-73); Platelet Count 151 K/mm3 (150-400); RDW Coefficient Variation 13.7 % (11.7-14.2); Red Blood Cell Count 5.11 M/mm3 (3.80-5.20); White Blood Cell Count 8.68 K/mm3 (4.00-11.30)
[2023-05-05 06:38] LABS: Albumin, Blood 2.9 g/dL (3.4-5.0); Albumin/Globulin Ratio 0.6 (0.8-1.8); Bilirubin, Total 0.5 mg/dL (0.1-1.0); Calcium, Blood 8.3 mg/dL (8.5-10.1); Creatinine, Blood 0.92 mg/dL (0.40-1.00); Globulin, Blood 4.6 g/dL (2.2-4.0); Potassium, Blood 3.6 mmol/L (3.5-5.5); Total Protein, Blood 7.5 g/dL (6.4-8.2)
[2023-05-05 07:45] VITALS: BP 187/96
[2023-05-05 15:31] VITALS: BP 157/87
--- NOTE | 2023-05-05 17:48 | NUR ---
SHIFT SUMMARY: PT A&O X4. PLEASANT AND COOPERATIVE WITH CARE. NO C/O PAIN THIS SHIFT. PT BEN COMPLETED THIS SHIFT. RECOMMENDING SNF. PT AGREEABLE TO GO TO SNF WHEN MEDICALLY STABLE. AFTERNOON BP IMPROVED FROM MORNING VS. QUEZADA IN PLACE DRAINING YELLOW URINE TO GRAVITY. TELE IN PLACE RUNNING SINUS RHYTHM. 1 BAG NS COMPLETED THIS SHIFT. CALL LIGHT IN REACH. BED IN LOWEST POSITION.
[2023-05-05 20:05] VITALS: BP 151/84
[2023-05-06 04:58] VITALS: BP 171/89
--- NOTE | 2023-05-06 06:45 | NUR ---
SUMMARY- NO NEW ISSUES. PT HAD A PLESANT NIGHT. PT HAS BEEN UP MOST OF SHIFT WATCHING TV. QUEZADA DRAINING TO GRAVITY. CALL LIGHT IN REACH.
[2023-05-06 07:20] VITALS: BP 171/90
[2023-05-06 14:40] VITALS: BP 146/78
--- NOTE | 2023-05-06 17:56 | NUR ---
SHIFT SUMMARY: PT ORIENTED THIS AM BUT HAS BECOME INCREASINGLY CONFUSED THROUGHOUT DAY. AROUND 1500 PT DID NOT KNOW WHERE SHE WAS OR MONTH/DAY. HOSPITALIST, PATIENT ADMITTING REPRESENTATIVE AND THIS RN EXPLAIN TO PT THAT SINCE SHE ON OBSERVATION STATUS, SHE DOES NOT QUALIFY FOR SNF. STAFF EXPLAINED TO PT THAT SHE NEEDED TO START GETTING OUT OF BED IN ORDER TO NOT BE BED BOUND AT HOME. PT REFUSED TO GET UP FOR DINNER AND BEGAN RIPPING OUT LINES AND CALLING STATING STAFF TOLD HER TO DISCHARGE. CYBER SYSTEMS ENGINEER AND PATIENT ADMITTING REPRESENTATIVE WENT BACK IN ROOM TO RE-EXPLAIN SITUATION. PT VERY UPSET RIGHT NOW THAT SHE CANNOT GO TO SNF. PT STATES SHE WENT TO SNF BACK WHEN SHE HAD BRAIN BLEED. ATTEMPTED TO EXPLAIN TO PT THAT THIS IS A DIFFERENT DIAGNOSIS. PT REMAINS VERY IRRITABLE AT THIS TIME. QUEZADA IN PLACE DRAINING YELLOW URINE TO GRAVITY. BP ELEVATED AT BEGINNING OF SHIFT. MEDICATED PER EMAR. C/O PAIN IN BILAT KNEES BUT REFUSES PAIN MEDS. CALL LIGHT IN REACH. BED IN LOWEST POSITION.
[2023-05-06 20:10] VITALS: BP 154/86
[2023-05-07 05:13] VITALS: BP 129/90
--- NOTE | 2023-05-07 06:21 | NUR ---
SHIFT SUMMARY PT A&O X4 WHEN ANSWERING ORIENTATION QUESTIONS, HOWEVER FREQUENT PERIODS OF CONFUSION AND FORGETFULNESS NOTED. PT OFTEN THINKING SHE IS AT "HOME" CALLING OUT FOR FAMILY OR ASKING THIS RN IF "FAMILY IS OUT IN THE LIVING ROOM OR WHAT EVERYONE IS DOING OUT THERE". PT REORIENTED AND STATES "OH, YES THAT IS RIGHT, I AM AT THE HOSPITAL" THEN PT ASKS SAME QUESTIONS OR CALLING OUT AGAIN. PT REMAINS ON RA, DENIES SOB. NO SOB OR DISTRESS NOTED THIS SHIFT. AFEBRILE. NO ACUTE CHANGES FROM START OF NOC SHIFT. QUEZADA CATHETER PATENT AND DRAINING YELLOW URINE TO GRAVITY. PT CONTINUES TO HAVE REDDENDED/EXORIATED AREAS UNDER FOLDS OF BREASTS, GROIN AND MARI AREA; MARI CARE AND CATH CARE COMPLETE. PT C/O CHRONIC "KNEE AND HIP PAIN" FROM PAST SURGERIES. REST AND RESPOSITIONING TO HELP ALLEVIATE PAIN. PT REPOSITIONED Q2 OR PRN. PT RESTED WELL DURING SHIFT. CALL LIGHT IN REACH, WILL UPDATE ONCOMING RN
[2023-05-07] MEDS ORDERED: LEVO750 PO (14:02)
[2023-05-07] MEDS ORDERED: LIDO700A20 TOP (14:03)
[2023-05-07] MEDS ORDERED: VISBIOME 112.51 EACH PO (14:03)
--- NOTE | 2023-05-07 14:51 | NUR ---
SHIFT/DISCHARGE SUMMARY Pt remains A&Ox3 this shift, forgetful at times. VSS. Resp even nonlabored on RA. Prakash with yellow output noted. Prakash dc'd and voiding per brief. All discharge instructions reviewed with pt and spouse. Ast provided with dressing.
== END 2023-05-07 15:37 | disposition home health service (06) ==
LOC: ER 16:25 → MEDS 16:26 → ENPENDDIS 05-07 12:18 → MEDS 05-07 15:37
PROVIDERS: Physician Assistant; Student in an Organized Health Care Education/Training Program; ADMIT Internal Medicine
DX: N39.0 Urinary tract infection, site not specified (principal); B96.4 Proteus (mirabilis) (morganii) as the cause of diseases classified elsewhere; B95.5 Unspecified streptococcus as the cause of diseases classified elsewhere; R62.7 Adult failure to thrive; E86.0 Dehydration; M17.12 Unilateral primary osteoarthritis, left knee; I10 Essential (primary) hypertension; J44.9 Chronic obstructive pulmonary disease, unspecified; K21.9 Gastro-esophageal reflux disease without esophagitis; Z91.81 History of falling; Z88.6 Allergy status to analgesic agent; Z88.8 Allergy status to other drugs, medicaments and biological substances; Z79.01 Long term (current) use of anticoagulants; Z79.899 Other long term (current) drug therapy
CPT/HCPCS: 0241U; 51701; 73562-LT; 80053; 81001; 83735; 83880; 84439; 84443; 84484; 85025; 87077; 87086; 87186; 93005; 93010; 94760; 96361-59; 96365-59; 96375; 96376; 97110; 97162; 97530; 99285-25; A9270; G0378; J0360; J0696; J7030

== ENCOUNTER 2024-02-09 13:33 | Inpatient (IN) | payer MEDICARE ==
[2024-02-09] VITALS (10 sets, daily range): BP systolic 129–156; BP diastolic 73–98
[~2024-02-09] VITALS: Ht 162.6 cm; Wt 102.0 kg
[~2024-02-09 13:33] MED LIST changes: +LEVO750 PO; +VISBIOME 112.51 EACH PO
[2024-02-09] MEDS ORDERED: ATOR10 PO (13:49)
[2024-02-09] MEDS ORDERED: METO25ER PO (13:50)
[2024-02-09] MEDS ORDERED: ALEN10 PO (13:50)
[2024-02-09] MEDS ORDERED: ELIQUIS2.5 MG PO (13:50)
[2024-02-09 13:52] LABS: Calcium, Ionized (POC) 1.12 mmol/L (1.10-1.46); Chloride (POC) 98 mmol/L (98-108); Glucose (ISTAT POC) 128 mg/dL (70-99); Sodium (POC) 141 mmol/L (135-148); Total CO2 (POC) 30 mmol/L (21-32)
[2024-02-09 13:58] LABS: BASOPHILS ABSOLUTE AUTO 0.03 K/mm3 (0.00-0.23); BASOPHILS PERCENT AUTO 0 % (0-2); EOSINOPHILS ABSOLUTE AUTO 0.13 K/mm3 (0.00-0.68); EOSINOPHILS PERCENT AUTO 1 % (0-6); Hematocrit 45.3 % (33.0-51.0); Hemoglobin 14.8 g/dL (11.5-16.0); IMMATURE GRAN ABSOLUTE AUTO 0.04 K/mm3 (0.00-0.10); IMMATURE GRAN PERCENT AUTO 0 % (0-1); LYMPHOCYTES PERCENT AUTO 50 % (21-46); MONOCYTES ABSOLUTE AUTO 0.66 K/mm3 (0.16-1.47); MONOCYTES PERCENT AUTO 6 % (4-13); Mean Corpuscular HGB 27.6 pg (26.0-34.0); Mean Corpuscular HGB Conc 32.7 g/dL (31.5-36.5); Mean Corpuscular Volume 84 fL (80-100); Mean Platelet Volume 9.9 fL (9.1-12.4); NEUTROPHILS ABSOLUTE AUTO 4.56 K/mm3 (1.96-9.15); NEUTROPHILS PERCENT AUTO 42 % (41-73); Platelet Count 201 K/mm3 (150-400); RDW Coefficient Variation 14.1 % (11.7-14.2); RDW Standard Deviation 43.2 fL (35.1-46.3); Red Blood Cell Count 5.37 M/mm3 (3.80-5.20); White Blood Cell Count 10.82 K/mm3 (4.00-11.30)
[2024-02-09] MEDS ORDERED: NS 1,000 ML IV ONE ×2 (14:20→14:22)
[2024-02-09] MEDS ORDERED: Heparin Sodium 1000 Units/ML 10ML MDV ONE (14:20)
[2024-02-09] MEDS ORDERED: Verapamil HCL 2.5 MG/ML 2ML Injection ONE (14:20)
[2024-02-09 14:21] LABS: Albumin, Blood 3.1 g/dL (3.4-5.0); Albumin/Globulin Ratio 0.6 (0.8-1.8); Bilirubin, Total 0.7 mg/dL (0.1-1.0); Bun/Creatinine Ratio 15.4 (12.0-20.0); Calcium, Blood 8.8 mg/dL (8.5-10.1); Creatinine, Blood 0.97 mg/dL (0.40-1.00); Globulin, Blood 5.4 g/dL (2.2-4.0); International Normalized Ratio 0.99; Prothrombin Time Results 10.6 Sec (9.7-11.5); Total Protein, Blood 8.5 g/dL (6.4-8.2)
[2024-02-09] MEDS ORDERED: NS 250 ML IV ONE (14:21)
[2024-02-09] MEDS ORDERED: Nitroglycerin 2 MG/20 ML BTL ONE (14:21)
[2024-02-09] MEDS ORDERED: FentaNYL Citrate 50 MCG/ML 2 ML Injection ONE (14:22)
[2024-02-09] MEDS ORDERED: Midazolam HCl 1MG / ML 2ML Vial ONE (14:22)
[2024-02-09] MEDS ORDERED: Labetalol HCL 5 MG/ML 4ML Injection (Single Dose) ONE (15:14)
[2024-02-09] MEDS ORDERED: Potassium Chl 20MEQ/Water100ML 100 ML IV SCH (15:15)
[2024-02-09 16:16] LABS: Cholesterol 117 mg/dL (50-200); HDL Cholesterol 58 mg/dL (>39); LDL/HDL RATIO 0.6; Low Density Lipoprotein Chol 36 mg/dL (0-110); Triglycerides 116 mg/dL (30-160); Very Low Density Lipoprot Chol 23 mg/dL (6-32)
[2024-02-09] MEDS ORDERED: Heparin Sodium,Porcine 5,000 UNIT/0.5 ML SDV SC ONE (16:16)
[2024-02-09] MEDS ORDERED: Ondansetron HCl 2 MG / ML 2ML Vial IV PRN (17:00)
[2024-02-09] MEDS ORDERED: Enoxaparin 40 MG/0.4 ML SYR SC SCH (17:00)
[2024-02-09] MEDS ORDERED: FLU VACC TS2024-25(6MOS UP)/PF 45 MCG/0.5 ML SYRINGE IM ONE (17:00)
[2024-02-09] MEDS ORDERED: NS 1,000 ML IV SCH (17:05)
--- NOTE | 2024-02-09 18:42 | NUR ---
SHIFT SUMMARY PT ARRIVED TO ICU ROOM 14 FROM SHREDDED FILLER CUTTER OPERATOR. A&OX4, FOLLOWING COMMANDS, PATEL. TR BAND IN PLACE TO R RADIAL, 10CC TO START, SMALL AMNT OF LIGHT RED BLOOD UNDER TR BAND SITE, ALL AIR OUT AT 1845. HARD WRIST BOARD IN PLACE, THIS RN EDUCATED PT TO NOT USE R ARM BUT PT REQUIRES FREQUENT REMINDER. PT DENIES CP OR SOB. PUREWICK IN PLACE, NO BM. MED LIST NOT COMPLETE, AWAITING SPOUSE TO BRING FULL LIST IN.
--- NOTE | 2024-02-09 20:42 | NUR ---
ASSUME CARE: PT A/Ox4 AND PLEASANT W/CARE. FAMILY AT BEDSIDE AT START OF SHIFT. BP STABLE W/ CUFF READJUSTMENT. MAP>65, DENIES CHEST PAIN OR PRESSURE. HR 60s, SINUS RYTHM. SPO2>90% ON RA. RT RADIAL TR BAND OFF AT [address] MINIMAL BRUISING AND BLEEDING, NO SIGNS OF HEMATOMA. PT NEEDS REDIRECTION TO KEEP RT ARM STILL AND NOT BEND WRIST. PT OTHERWISE VERY COOPERATIVE W/CARE. PUREWICK IN PLACE FOR INCONTINENCE, DRAINING YELLOW URINE. CALL LIGHT IN REACH. WILL UPDATE NEEDED.
[2024-02-09 21:15] LABS: Anti-Xa UFH, PHA Monitoring <0.10 IU/mL; International Normalized Ratio 1.01; Prothrombin Time Results 10.8 Sec (9.7-11.5)
[2024-02-09] MEDS ORDERED: Heparin Sodium,Porcine/0.5 NS 500 ML IV SCH (23:59)
[2024-02-10] VITALS (13 sets, daily range): BP systolic 116–167; BP diastolic 58–108
[2024-02-10] MEDS ORDERED: Miconazole Nitrate 2% 85 GM PWD TOP ONE (02:50)
--- NOTE | 2024-02-10 05:16 | NUR ---
SHIFT SUMMARY: PT A/Ox4 T/O THE NIGHT AND COOPERATIVE W/CARE. SBP 140s-150s, MAP>65, DENIES CP OR PRESSURE. HR 70s IN SINUS RYTHM. PT DESAT TO 86-88 ON RA WHILE SLEEPING, 2L NC APPLIED FOR SLEEP W/ SPO2>90%. MINIMAL BRUISING AND OLD BLOOD NOTED AT RADIAL SITE, NO EVIDENCE OF HEMATOMA. PUREWICK IN PLACE W/DARK YELLOW OUTPUT. PT HAS EXCORIATION/REDNESS ON PANNUS, UNDER BREASTS/FOLDS. PICTURES IN CHART. PT STATES SHE IS NOT ABLE TO CLEAN HER SELF WELL AT HOME. HEPARIN GTT INFUSING AT 12 UNITS/KG/HR. CALL LIGHT IN REACH. WILL REPORT TO ONCOMING RN.
[2024-02-10 06:08] LABS: BASOPHILS ABSOLUTE AUTO 0.02 K/mm3 (0.00-0.23); BASOPHILS PERCENT AUTO 0 % (0-2); EOSINOPHILS ABSOLUTE AUTO 0.07 K/mm3 (0.00-0.68); EOSINOPHILS PERCENT AUTO 1 % (0-6); Hematocrit 40.2 % (33.0-51.0); Hemoglobin 12.7 g/dL (11.5-16.0); IMMATURE GRAN ABSOLUTE AUTO 0.02 K/mm3 (0.00-0.10); IMMATURE GRAN PERCENT AUTO 0 % (0-1); LYMPHOCYTES ABSOLUTE AUTO 2.31 K/mm3 (0.84-5.20); LYMPHOCYTES PERCENT AUTO 30 % (21-46); MONOCYTES ABSOLUTE AUTO 0.47 K/mm3 (0.16-1.47); MONOCYTES PERCENT AUTO 6 % (4-13); Mean Corpuscular HGB 27.4 pg (26.0-34.0); Mean Corpuscular HGB Conc 31.6 g/dL (31.5-36.5); Mean Corpuscular Volume 87 fL (80-100); NEUTROPHILS PERCENT AUTO 62 % (41-73); Platelet Count 149 K/mm3 (150-400); RDW Coefficient Variation 14.4 % (11.7-14.2); RDW Standard Deviation 45.3 fL (35.1-46.3); Red Blood Cell Count 4.64 M/mm3 (3.80-5.20); White Blood Cell Count 7.69 K/mm3 (4.00-11.30)
[2024-02-10 06:38] LABS: Albumin, Blood 2.7 g/dL (3.4-5.0); Albumin/Globulin Ratio 0.6 (0.8-1.8); Bilirubin, Total 0.5 mg/dL (0.1-1.0); Bun/Creatinine Ratio 14.9 (12.0-20.0); Calcium, Blood 8.1 mg/dL (8.5-10.1); Creatinine, Blood 0.74 mg/dL (0.40-1.00); Globulin, Blood 4.7 g/dL (2.2-4.0); Potassium, Blood 3.7 mmol/L (3.5-5.5); Total Protein, Blood 7.4 g/dL (6.4-8.2)
[2024-02-10] MEDS ORDERED: Dose Adjust by Pharmacy XX STA ×2 (06:51→15:12)
--- NOTE | 2024-02-10 08:30 | NUR ---
SHIFT ASSESSMENT ASSUMED CARE OF PT @ 0700, BEDSIDE REPORT RECEIVED FROM MIMA. PT A&OX4, FOLLOWING COMMANDS, PATEL. GENERALIZED WEAKNESS. DENIES CP/ SOB. TOLERATING PO INTAKE WELL. PUREWICK IN PLACE, DRAINING YELLOW URINE. NO BM. HEPARIN GTT INFUSING @ PRESCRIBED RATE.
[2024-02-10] MEDS ORDERED: DULoxetine HCL 30 MG Cap DR PO SCH (09:00)
[2024-02-10] MEDS ORDERED: AmLODIPine Besylate 5 MG Tab PO SCH (09:00)
[2024-02-10] MEDS ORDERED: Metoprolol Succinate 25 MG TABCR PO SCH (09:00)
[2024-02-10] MEDS ORDERED: Miconazole Nitrate 2% 85 GM PWD TOP SCH (09:00)
[2024-02-10] MEDS ORDERED: Metoprolol Succinate 50 MG TABCR PO SCH (10:00)
[2024-02-10] MEDS ORDERED: C COMPLEX1000 M1 PO (14:46)
[2024-02-10] MEDS ORDERED: SYMBICORT 160-4.6 GM INH (14:48)
--- NOTE | 2024-02-10 16:00 | NUR ---
TRANSFER TO PCU PT TAKEN TO PCU 2 VIA HOSPITAL BED AT THIS TIME. ALL BELONGINGS INCLUDING TABLET, ASSORTER LAUNDRY AND MEDS PLACED IN BELONGING BAGS AND TAKEN TO NEW ROOM. CORY ELAINE AT BEDSIDE UPON ARRIVAL. PT'S SCOTT NOTIFIED OF ROOM CHANGE VIA TELEPHONE.
[2024-02-10] MEDS ORDERED: Aspirin 81 MG Chew PO SCH (17:10)
--- NOTE | 2024-02-10 17:33 | NUR ---
TRANSFER TO PCU 2 / SHIFT SUMMARY PT ARRIVED TO PCU 2 AT APPROXIMATELY 1555. PT SLID OVER FROM ICU BED TO PCU BED BY 4 CLINICAL STAFF MEMBERS. PT A&Ox4, CALLS AND COMMUNICATES NEEDS APPROPRIATELY, ORIENTED TO CALL LIGHT/UNIT. BP STABLE, SR-ST 100's, DENIES CP/PRESSURE. SpO2> 92% 2L VIA NC, DENIES SOB. R RADIAL SITE WITH MILD BRUISING, NO BLEEDING OR HEMATOMA PRESENT, ARM BOARD IN PLACE. PERICARE ANS ATTENDS CHANGE PROVIDED, PUREWICK IN PLACE. NO C/O PAIN. HEPARIN gtt INFUSING PER EMAR, MANAGED BY PHARMACY. NO OTHER EVENTS, WILL REPORT TO ONCOMING RN.
[2024-02-10] MEDS ORDERED: Clopidogrel Bisulfate 300 MG Cap PO ONE (18:00)
[2024-02-10] MEDS ORDERED: Carvedilol 6.25 MG Tab PO SCH (21:00)
[2024-02-11 03:41] VITALS: BP 116/75
--- NOTE | 2024-02-11 05:07 | NUR ---
END OF SHIFT SUMMARY- Patient slept well on nightshift, denies chest pain/pressure. VSS on 2LNC at HS for GALINA. A&Ox4, pleasant. Purewick in place for strict Is and Os due to urinary incontinence. Antifungal powder applied to folds due to maceration from incontinence. 1st angiogram yesterday, no intervention took place- 2nd angiogram with high risk/complex intervention scheduled for Sunday at noon with Dr. Cornejo. (plavix loading/medication adjustments needed prior). Severe LAD/90% calcified stenosis seen yesterday. R radial site without hematoma, small bruise present, nontender and soft to touch. Arm board remains in place. NSR on tele, Patient is a 2 Assist to get OOB due to debility. 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 No issues or needs overnight.
[2024-02-11 05:21] LABS: BASOPHILS ABSOLUTE AUTO 0.03 K/mm3 (0.00-0.23); BASOPHILS PERCENT AUTO 0 % (0-2); EOSINOPHILS ABSOLUTE AUTO 0.11 K/mm3 (0.00-0.68); EOSINOPHILS PERCENT AUTO 2 % (0-6); Hematocrit 39.4 % (33.0-51.0); Hemoglobin 12.9 g/dL (11.5-16.0); IMMATURE GRAN ABSOLUTE AUTO 0.03 K/mm3 (0.00-0.10); IMMATURE GRAN PERCENT AUTO 0 % (0-1); LYMPHOCYTES ABSOLUTE AUTO 2.14 K/mm3 (0.84-5.20); LYMPHOCYTES PERCENT AUTO 31 % (21-46); MONOCYTES ABSOLUTE AUTO 0.39 K/mm3 (0.16-1.47); MONOCYTES PERCENT AUTO 6 % (4-13); Mean Corpuscular HGB 27.9 pg (26.0-34.0); Mean Corpuscular HGB Conc 32.7 g/dL (31.5-36.5); Mean Corpuscular Volume 85 fL (80-100); Mean Platelet Volume 9.5 fL (9.1-12.4); NEUTROPHILS ABSOLUTE AUTO 4.13 K/mm3 (1.96-9.15); NEUTROPHILS PERCENT AUTO 61 % (41-73); Platelet Count 152 K/mm3 (150-400); RDW Coefficient Variation 14.6 % (11.7-14.2); RDW Standard Deviation 45.7 fL (35.1-46.3); Red Blood Cell Count 4.62 M/mm3 (3.80-5.20); White Blood Cell Count 6.83 K/mm3 (4.00-11.30)
[2024-02-11 05:40] LABS: Albumin, Blood 2.7 g/dL (3.4-5.0); Albumin/Globulin Ratio 0.6 (0.8-1.8); Bilirubin, Total 0.8 mg/dL (0.1-1.0); Bun/Creatinine Ratio 18.3 (12.0-20.0); Calcium, Blood 8.3 mg/dL (8.5-10.1); Creatinine, Blood 0.98 mg/dL (0.40-1.00); Globulin, Blood 4.5 g/dL (2.2-4.0); Total Protein, Blood 7.2 g/dL (6.4-8.2)
[2024-02-11] MEDS ORDERED: Dose Adjust by Pharmacy XX STA (05:51)
[2024-02-11] MEDS ORDERED: Atorvastatin 40 MG Tab PO SCH (09:00)
[2024-02-11] MEDS ORDERED: Clopidogrel Bisulfate 75 MG Tab PO SCH (09:00)
[2024-02-11 09:14] VITALS: BP 107/68
[2024-02-11 11:28] VITALS: BP 91/63
[2024-02-11 15:53] VITALS: BP 128/73
--- NOTE | 2024-02-11 18:02 | NUR ---
SHIFT SUMMARY NO ACUTE CHANGED THIS SHIFT. PT A&O X 4. VSS. PT TO BED NPO AT MIDNIGHT FOR PCI TOMORROW. HEPRIN REPAINS AT 19 U/KG/HR. PHYSICAL AND OCCUPATIONAL THERAPY WORKED WITH PATIENT THIS AM, PT WAS NOEL TO TRANSFER WITH 2 PERSON FROM BED TO CHAIR. CALLED DR. GERMAN @ [facility] 1020 TO REQUEST A SPEECH EVAL DUE TO PT REPORTS OF DIFICULTY SWALLOWING. SPEECH EVALED PT AND RECOMMENED PILLS BE TAKEN 1 AT A TIME WITH APPLE SAUCE AND IF POSSIBLE BIGGER PILLS BE CUT. CARDIOLOGY ROUNDED ON PT @1732 PLAN OF CARE REMAINS THE SAME.
[2024-02-11 19:16] VITALS: BP 104/69
[2024-02-11 23:48] VITALS: BP 117/73
[2024-02-12] VITALS (15 sets, daily range): BP systolic 84–123; BP diastolic 53–103
[2024-02-12 02:22] LABS: BASOPHILS ABSOLUTE AUTO 0.02 K/mm3 (0.00-0.23); BASOPHILS PERCENT AUTO 0 % (0-2); EOSINOPHILS ABSOLUTE AUTO 0.17 K/mm3 (0.00-0.68); EOSINOPHILS PERCENT AUTO 2 % (0-6); Hematocrit 36.8 % (33.0-51.0); Hemoglobin 12.1 g/dL (11.5-16.0); IMMATURE GRAN ABSOLUTE AUTO 0.02 K/mm3 (0.00-0.10); IMMATURE GRAN PERCENT AUTO 0 % (0-1); LYMPHOCYTES PERCENT AUTO 32 % (21-46); MONOCYTES ABSOLUTE AUTO 0.53 K/mm3 (0.16-1.47); MONOCYTES PERCENT AUTO 7 % (4-13); Mean Corpuscular HGB 27.8 pg (26.0-34.0); Mean Corpuscular HGB Conc 32.9 g/dL (31.5-36.5); Mean Corpuscular Volume 85 fL (80-100); Mean Platelet Volume 9.9 fL (9.1-12.4); NEUTROPHILS ABSOLUTE AUTO 4.24 K/mm3 (1.96-9.15); NEUTROPHILS PERCENT AUTO 58 % (41-73); Platelet Count 152 K/mm3 (150-400); RDW Coefficient Variation 14.7 % (11.7-14.2); RDW Standard Deviation 45.6 fL (35.1-46.3); Red Blood Cell Count 4.35 M/mm3 (3.80-5.20); White Blood Cell Count 7.28 K/mm3 (4.00-11.30)
[2024-02-12 02:40] LABS: Bun/Creatinine Ratio 25.2 (12.0-20.0); Calcium, Blood 8.3 mg/dL (8.5-10.1); Creatinine, Blood 1.03 mg/dL (0.40-1.00)
[2024-02-12] MEDS ORDERED: Dose Adjust by Pharmacy XX STA ×2 (03:02→10:24)
--- NOTE | 2024-02-12 05:01 | NUR ---
END OF SHIFT REPORT: Patient NPO for angiogram #2 this AM at 1130. (high risk/complex PCI planned). A&Ox4, VSS on 2LNC, NSR on telemetry in the 60-90s overnight. Denies pain, q2h turns in place. Max assist x 2 to get OOB, plan is for DC to [facility] after PCI and once eliquis is resumed. Currently on a hep gtt, rate decreased to 17u/kg/hr overnight due to supratherapeutic aPTT. Voiding via purewick due to urinary incontinence. Redness present in her folds treated with antifungal powder. Previous R radial TR band site WNL. No changes.
[2024-02-12] MEDS ORDERED: Verapamil HCL 2.5 MG/ML 2ML Injection ONE (11:03)
[2024-02-12] MEDS ORDERED: Heparin Sodium 1000 Units/ML 10ML MDV ONE ×2 (11:03→11:11)
[2024-02-12] MEDS ORDERED: NS 1,000 ML IV ONE ×2 (11:03→11:09)
[2024-02-12] MEDS ORDERED: Nitroglycerin 2 MG/20 ML BTL ONE (11:04)
[2024-02-12] MEDS ORDERED: NS 250 ML IV ONE (11:04)
[2024-02-12] MEDS ORDERED: FentaNYL Citrate 50 MCG/ML 2 ML Injection ONE (11:08)
[2024-02-12] MEDS ORDERED: Midazolam HCl 1MG / ML 2ML Vial ONE (11:09)
[2024-02-12] MEDS ORDERED: Atropine Sulfate 0.1 MG/ML 10ML SYR ONE (12:01)
[2024-02-12] MEDS ORDERED: Phenylephrine HCl 100 MCG/ML-NS 10MLSYR (1MG/10ML) ONE (12:01)
--- NOTE | 2024-02-12 12:40 | NUR ---
PT LEFT FOR ANGIOGRAM PROCEDURE AT 11:30 VIA BED. HEPARIN GTT WAS STOPPED PER CARDIAC CENTER NURSE AND CONFIRMED SHE HAD ASPIRIN AND PLAVIX IN MORNING MEDS.
--- NOTE | 2024-02-12 13:19 | NUR ---
PT RETRUNED FROM ANGIOGRAM AND LOOKED AT RIGHT RADIAL SITE FROM NEW INSERTION. SLIGHTLY SWOLLEN HAS NO HEMATOMA, NO BLEEDING, BRUISING AT THE OLD SIGHT, HAS 12CC IN THE BAND, WITH SPLINT BOARD ON ARM. FAMILY IS AT BEDSIDE, HAS CALL LIGHT WITHIN REACH AND BED AT LOWEST POSITION.
[2024-02-12] MEDS ORDERED: NS 1,000 ML IV SCH (16:50)
--- NOTE | 2024-02-12 17:22 | NUR ---
END OF SHIFT SUMMARY: PT IS A&OX4 AND ACTIVE IN HER CARE. SATTING >92% ON ROOM AIR, IS ON 2L VIA NASAL CANNULA WHEN SLEEPING SHE DESATS. ON TELE SHOWING SINUS WITH RATE BETWEEN 90-100. HAD AN ANGIOGRAM DONE WITH INSERTION SITE AT RIGHT RADIAL, SLIGHT BRUSING, NO BLEEDING OR HEMATOMA. THERE IS AN OLD BRUISE BELOW FROM A PREVIOUS SITE. TR BAND IN PLACE AND A TEGADERM WAS PLACED. HEPARIN GTT WAS D'C D PER ORDERS AFTER PROCEDURE. TOOK MEDICATIONS WITH APPLESAUCE WITHOUT ANY PROBLEMS THIS MORNING, HAS FLUIDS AT 75MLS/HR. HAS A PUREWICK PLACED THAT HAS BEEN DRAINING WELL TO SUCTION. IS AWARE OF THE RESTRICTIONS OF USING HER RIGHT ARM TOO MUCH AND IS COOPEARTIVE.WILL NOTIFY TO ONCOMING HEALTH INSURANCE SPECIALIST RN.
[2024-02-12] MEDS ORDERED: ATOR40TA PO (20:54)
[2024-02-12] MEDS ORDERED: METOPROLOL SUCC25 MG PO (20:54)
[2024-02-12] MEDS ORDERED: Apixaban 5 MG Tab PO SCH (21:00)
[2024-02-13 03:44] VITALS: BP 107/55
[2024-02-13 04:27] LABS: BASOPHILS ABSOLUTE AUTO 0.02 K/mm3 (0.00-0.23); BASOPHILS PERCENT AUTO 0 % (0-2); EOSINOPHILS ABSOLUTE AUTO 0.07 K/mm3 (0.00-0.68); EOSINOPHILS PERCENT AUTO 1 % (0-6); Hematocrit 36.4 % (33.0-51.0); Hemoglobin 11.4 g/dL (11.5-16.0); IMMATURE GRAN ABSOLUTE AUTO 0.02 K/mm3 (0.00-0.10); IMMATURE GRAN PERCENT AUTO 0 % (0-1); LYMPHOCYTES ABSOLUTE AUTO 1.47 K/mm3 (0.84-5.20); LYMPHOCYTES PERCENT AUTO 29 % (21-46); MONOCYTES ABSOLUTE AUTO 0.41 K/mm3 (0.16-1.47); MONOCYTES PERCENT AUTO 8 % (4-13); Mean Corpuscular HGB 27.2 pg (26.0-34.0); Mean Corpuscular HGB Conc 31.3 g/dL (31.5-36.5); Mean Corpuscular Volume 87 fL (80-100); Mean Platelet Volume 10.3 fL (9.1-12.4); NEUTROPHILS ABSOLUTE AUTO 3.08 K/mm3 (1.96-9.15); NEUTROPHILS PERCENT AUTO 61 % (41-73); Platelet Count 140 K/mm3 (150-400); RDW Coefficient Variation 14.7 % (11.7-14.2); RDW Standard Deviation 46.6 fL (35.1-46.3); Red Blood Cell Count 4.19 M/mm3 (3.80-5.20); White Blood Cell Count 5.07 K/mm3 (4.00-11.30)
[2024-02-13 04:43] LABS: Bun/Creatinine Ratio 23.7 (12.0-20.0); Calcium, Blood 8.3 mg/dL (8.5-10.1); Creatinine, Blood 0.8 mg/dL (0.40-1.00); Potassium, Blood 4.2 mmol/L (3.5-5.5)
--- NOTE | 2024-02-13 05:05 | NUR ---
SHIFT SUMMARY- PATIENT HAD A GOOD NIGHT. STAYED ON THE PURWICK SYSTEM ALL NIGHT- PATIENT DOES NOT ALERT STAFF WHEN SHE IS INCONTINENT AROUND THE PURWICK- THOUGH SHE IS AWARE OF IT. EDUCATION PROVIDED TO HER, SHE HAS EXCORIATION AND SKIN BREAKDOWN NOTED IN HER PANNUS AND GROIN AREA. RUE FROM ANGIO SITE LOOKS GOOD, UNCHANGED FROM THE START OF SHIFT. BRUISING NOTED, AND SCANT BLOOD AT THE INCISION SITE. TEGADERM IS C/D/I. PATIENT REMAINS ON 2L OF OXYGEN, SPO2 IS ABOVE 92%. REPEAT EKG PERFORMED THIS MORNING. PAPER COPY LOCATED IN THE FRONT OF PATIENTS SOFT CHART. TOLERATED WELL.
[2024-02-13 08:03] VITALS: BP 1213/85
[2024-02-13] MEDS ORDERED: Carvedilol12.5 MG PO (10:46)
[2024-02-13] MEDS ORDERED: CLOP75 PO (10:47)
[2024-02-13] MEDS ORDERED: Aspir 8181 MG PO (10:47)
[2024-02-13 11:17] LABS: SARS-Cov-2 (COVID-19) PCR, MMC NEGATIVE (NEGATIVE)
[2024-02-13 12:26] VITALS: BP 102/72
--- NOTE | 2024-02-13 12:40 | NUR ---
TO BEDSIDE: CAME TO BEDSIDE AND WENT OVER WITH PATIENT TO DISCHARGE WITH A FOLLOWUP WITH HER BIODIESEL OPERATIONS MANAGER OUTPATIENT FOR THE CARDIAC REHAB FOLLOWING PCI. HE CALLED HOSPITALIST TO VERIFY THAT WON'T BE TAKING ELIQUIS BUT WILL CONTINUE TAKING ASPIRIN AND CLOPIDIGREL.
--- NOTE | 2024-02-13 12:50 | NUR ---
[facility] AND NOTIFIED ABOUT ASPIRIN AND PLAVIX TO BE TAKEN ALONG WITH THE OUTPATIENT CARDIAC REFFERAL WITH PATIENTS HOP PICKER.
--- NOTE | 2024-02-13 13:13 | NUR ---
TRANSPORT ARRIVED AT 1300 TO PICKUP PT. PT LEFT AT 1310 VIA WHEELCHAIR AND ON RA. PT PERSONAL BELONGINGS IN BAGS AND WITH PIGS FEET FINISHER AT TIME OF LEAVING, PIGS FEET FINISHER ESCORTED TRANSPORT AND PT OUT TO VEHICLE. PT PACKET GIVEN TO TRANSPORT STAFF
== END 2024-02-13 13:00 | DRG 324 ==
LOC: ER 13:33 → ICUE 13:34 → ER 16:07 → EDBEDREQ 16:19 → ICUE 16:32 → PCU 02-10 14:08
PROVIDERS: Internal Medicine; Student in an Organized Health Care Education/Training Program; ADMIT Student in an Organized Health Care Education/Training Program
PROC: 4A023N7 Measurement of Cardiac Sampling and Pressure, Left Heart, Percutaneous Approach (ICD-10-PCS; 2024-02-09)
PROC: 027034Z Dilation of Coronary Artery, One Artery with Drug-eluting Intraluminal Device, Percutaneous Approach (ICD-10-PCS; principal; 2024-02-12)
PROC: 02F03ZZ Fragmentation in Coronary Artery, One Artery, Percutaneous Approach (ICD-10-PCS; 2024-02-12)
PROC: B240ZZ3 Ultrasonography of Single Coronary Artery, Intravascular (ICD-10-PCS; 2024-02-12)
PROC: B2111ZZ Fluoroscopy of Multiple Coronary Arteries using Low Osmolar Contrast (ICD-10-PCS; 2024-02-12)
DX: I21.3 ST elevation (STEMI) myocardial infarction of unspecified site (principal); I10 Essential (primary) hypertension; M19.90 Unspecified osteoarthritis, unspecified site; M81.0 Age-related osteoporosis without current pathological fracture; M79.7 Fibromyalgia; R13.10 Dysphagia, unspecified; E66.01 Morbid (severe) obesity due to excess calories; E87.6 Hypokalemia; E78.5 Hyperlipidemia, unspecified; L30.4 Erythema intertrigo; K21.9 Gastro-esophageal reflux disease without esophagitis; I25.110 Atherosclerotic heart disease of native coronary artery with unstable angina pectoris; G47.33 Obstructive sleep apnea (adult) (pediatric); R73.03 Prediabetes; J43.9 Emphysema, unspecified; Z96.642 Presence of left artificial hip joint; Z96.653 Presence of artificial knee joint, bilateral; Z87.19 Personal history of other diseases of the digestive system; Z86.718 Personal history of other venous thrombosis and embolism; Z90.711 Acquired absence of uterus with remaining cervical stump; Z98.890 Other specified postprocedural states; Z88.8 Allergy status to other drugs, medicaments and biological substances; Z91.048 Other nonmedicinal substance allergy status; Z79.01 Long term (current) use of anticoagulants; Z79.899 Other long term (current) drug therapy; Z68.36 Body mass index [BMI] 36.0-36.9, adult
CPT/HCPCS: 36415; 71045; 76937; 80047; 80048; 80053; 80061; 83036; 83880; 84484; 85014; 85025; 85347; 85520; 85610; 85651; 85730; 86140; 92610; 92972; 92978; 93005; 93010; 93306; 93454; 93458; 93571; 94760; 94762; 96365; 96366; 96375; 97110; 97162; 97165; 97530; 97535; 99152; 99153; 99285-25; A9270; C1725; C1753; C1761; C1769; C1874; C1887; C1894; C9600; G0378; J0461; J1644; J2250; J2371; J3010; J3480; J7030; J7050; Q9967; U0002

== ENCOUNTER 2024-02-24 22:11 | Observation (INO) | payer MEDICARE ==
[~2024-02-24] VITALS: Ht 162.6 cm; Wt 90.7 kg
[~2024-02-24 22:11] MED LIST changes: +ALEN10 PO; +ATOR10 PO; +ATOR40TA PO; +Aspir 8181 MG PO; +C COMPLEX1000 M1 PO; +CLOP75 PO; +Carvedilol12.5 MG PO; +ELIQUIS2.5 MG PO; +METO25ER PO; +METOPROLOL SUCC25 MG PO; +SYMBICORT 160-4.6 GM INH
[2024-02-24 22:34] LABS: BASOPHILS ABSOLUTE AUTO 0.03 K/mm3 (0.00-0.23); BASOPHILS PERCENT AUTO 0 % (0-2); EOSINOPHILS ABSOLUTE AUTO 0.13 K/mm3 (0.00-0.68); EOSINOPHILS PERCENT AUTO 1 % (0-6); Hematocrit 41.5 % (33.0-51.0); Hemoglobin 13.5 g/dL (11.5-16.0); IMMATURE GRAN ABSOLUTE AUTO 0.03 K/mm3 (0.00-0.10); IMMATURE GRAN PERCENT AUTO 0 % (0-1); LYMPHOCYTES ABSOLUTE AUTO 2.87 K/mm3 (0.84-5.20); LYMPHOCYTES PERCENT AUTO 30 % (21-46); MONOCYTES ABSOLUTE AUTO 0.71 K/mm3 (0.16-1.47); MONOCYTES PERCENT AUTO 7 % (4-13); Mean Corpuscular HGB 28.1 pg (26.0-34.0); Mean Corpuscular HGB Conc 32.5 g/dL (31.5-36.5); Mean Corpuscular Volume 86 fL (80-100); Mean Platelet Volume 9.8 fL (9.1-12.4); NEUTROPHILS ABSOLUTE AUTO 5.82 K/mm3 (1.96-9.15); NEUTROPHILS PERCENT AUTO 61 % (41-73); Platelet Count 187 K/mm3 (150-400); RDW Coefficient Variation 15.3 % (11.7-14.2); RDW Standard Deviation 47.8 fL (35.1-46.3); Red Blood Cell Count 4.81 M/mm3 (3.80-5.20); White Blood Cell Count 9.59 K/mm3 (4.00-11.30)
[2024-02-24] MEDS ORDERED: CYMBALTA30 M2 PO (22:49)
[2024-02-24] MEDS ORDERED: METOPROLOL SUCC25 MG PO (22:51)
[2024-02-24 22:56] LABS: Albumin/Globulin Ratio 0.6 (0.8-1.8); Bilirubin, Total 0.8 mg/dL (0.1-1.0); Bun/Creatinine Ratio 17.1 (12.0-20.0); Calcium, Blood 8.7 mg/dL (8.5-10.1); Creatinine, Blood 1.05 mg/dL (0.40-1.00); Potassium, Blood 3.5 mmol/L (3.5-5.5)
[2024-02-25] MEDS ORDERED: Azithromycin 500 MG in NS 250 ML IV ONE (01:10)
[2024-02-25] MEDS ORDERED: CefTRIAXone Sodium 1,000 MG in NS 100 ML IV ONE ×2 (01:10→20:05)
[2024-02-25] MEDS ORDERED: Lactated Ringer's 1,000 ML IV ONE (02:25)
[2024-02-25] MEDS ORDERED: FLU VACC TS2024-25(6MOS UP)/PF 45 MCG/0.5 ML SYRINGE IM SCH (08:40)
[2024-02-25] MEDS ORDERED: Acetaminophen 325 MG TABLET PO PRN (08:45)
[2024-02-25] MEDS ORDERED: Atorvastatin 40 MG Tab PO SCH (09:00)
[2024-02-25] MEDS ORDERED: DULoxetine HCL 30 MG Cap DR PO SCH (09:00)
[2024-02-25] MEDS ORDERED: Aspirin 81 MG Chew PO SCH (09:00)
[2024-02-25] MEDS ORDERED: Clopidogrel Bisulfate 75 MG Tab PO SCH (09:00)
[2024-02-25] MEDS ORDERED: Metoprolol Succinate 25 MG TABCR PO SCH (09:00)
[2024-02-25] MEDS ORDERED: AmLODIPine Besylate 5 MG Tab PO SCH (09:00)
[2024-02-25 12:51] VITALS: BP 136/76
[2024-02-25] MEDS ORDERED: Miconazole Nitrate 2% 85 GM PWD TOP PRN (16:05)
[2024-02-25 19:24] VITALS: BP 142/79
--- NOTE | 2024-02-25 19:29 | NUR ---
ADMIT NOTE/SHIFT SUMMARY- PT ATDMITTED AROUND 1300. PT ALERT AND ORIENTED. PT TOLD STAFF SHE IS UNABLE TO STAND AND PIVOT TRANSFER TO A BEDSIDE COMMODE. PT HAD A PUREWICK IN PLACE IN THE ED AND REPORTEDLY "FILLED A CANNISTER" DOWN THERE. PT ARRIVED ON MED FLOOR. WITH THE PUREWICK IN PLACE AND WET ATTENDS. PT WAS CHANGED, PUREWICK DC'D AND BED BATH COMPLETED. PT WAS NOTED TO HAVE EXCORATION TO HER BOTOM AND IN THE MARI AREA, SHE HAS RED WEEPING YEAST IN THE FOLDS, PANNUS AND BREAST. ALL AREAS WASHED AND DRIED, INTERDRY PLACED TO KEEP DRY. SPOKE TO DR HOWELL AND THEY PLACED AN ORDER FOR NYSTATIN POWDER. PT HAS STRONG BED MOBILITY. ABLE TO LIFT HER FEET STRAIGHT ABOVE HER WASTE. SHE STATES SHE USES THE PUREWICK BECAUSE SHE HAS A BAD KNEE AND CANT TRANSFER. PT HAS SCATTERED BRUISING IN BLE BELOW THE KNEE. WHEN ASKED ABOUT THEM SHE STATES THATS FROM "BUMPING INTO MY WALKER" DURING SKIN ASSESSMENT THE PT WAS NOTED TO HAVE DRIED BROWN STOOL ON HER RIGHT FOOT AND SMEARED ACROSS THE BOTTOM OF IT. SHE HAD HOSPITAL SOCKS ON HER FEET THAT WERE CLEANED. SPOKE TO THE PT ABOUT IT ANS SHE SAIS SHE "MUST HAVE STEPPED IN IT IN THE BATHROOM' WHEN SHE "POOPED ON THE FLOOR." UNCERTAIN ABOUT THE PT AMBULATION STATUS AT THIS TIME, SHE IS HERE WITH A UTI BUT CAME IN WITH CP, TROPONINS HAVE NOT INCREASED. VSS. PT ON 2L O2 VIA NC. SHE IS ON ROOM AIR AT HOME. PHOTOS TAKEN OF THE WOUNDS AND SKIN ISSUES. PT IN BED AT THE TIME OF BEDSIDE REPORT. NO S&S OF DISTRESS NOTED.
[2024-02-25] MEDS ORDERED: NS 250 ML IV PRN (20:45)
[2024-02-26 03:12] VITALS: BP 158/79
[2024-02-26 06:10] LABS: BASOPHILS ABSOLUTE AUTO 0.03 K/mm3 (0.00-0.23); BASOPHILS PERCENT AUTO 0 % (0-2); EOSINOPHILS ABSOLUTE AUTO 0.15 K/mm3 (0.00-0.68); EOSINOPHILS PERCENT AUTO 2 % (0-6); Hematocrit 40.5 % (33.0-51.0); Hemoglobin 12.6 g/dL (11.5-16.0); IMMATURE GRAN ABSOLUTE AUTO 0.03 K/mm3 (0.00-0.10); IMMATURE GRAN PERCENT AUTO 0 % (0-1); LYMPHOCYTES PERCENT AUTO 27 % (21-46); MONOCYTES ABSOLUTE AUTO 0.51 K/mm3 (0.16-1.47); MONOCYTES PERCENT AUTO 7 % (4-13); Mean Corpuscular HGB 27.6 pg (26.0-34.0); Mean Corpuscular HGB Conc 31.1 g/dL (31.5-36.5); Mean Corpuscular Volume 89 fL (80-100); Mean Platelet Volume 9.9 fL (9.1-12.4); NEUTROPHILS ABSOLUTE AUTO 4.76 K/mm3 (1.96-9.15); NEUTROPHILS PERCENT AUTO 64 % (41-73); Platelet Count 142 K/mm3 (150-400); RDW Coefficient Variation 15.1 % (11.7-14.2); RDW Standard Deviation 48.9 fL (35.1-46.3); Red Blood Cell Count 4.56 M/mm3 (3.80-5.20); White Blood Cell Count 7.48 K/mm3 (4.00-11.30)
--- NOTE | 2024-02-26 06:26 | NUR ---
Shift Summary No acute changes, no chest pain this shift. Pt rcving IV ABX for UTI. Skin reassessed in tyron-area, no wound or redness noted. Purewick was replaced around 0300. Anti fungal powder applied to red areas around folds. Pt remained in bed t/o the night. Incontinent voids. AOx4, cooperative with care, makes need known. Given Tylenol and repositioned for chronic back pain. Sitting up after laying down all night help manage pain.
[2024-02-26 06:40] LABS: Bun/Creatinine Ratio 16.9 (12.0-20.0); Calcium, Blood 8.9 mg/dL (8.5-10.1); Creatinine, Blood 0.83 mg/dL (0.40-1.00)
[2024-02-26 07:20] VITALS: BP 147/83
[2024-02-26] MEDS ORDERED: Carvedilol 6.25 MG Tab PO SCH (08:00)
[2024-02-26] MEDS ORDERED: Enoxaparin 40 MG/0.4 ML SYR SC SCH (09:00)
[2024-02-26 09:46] VITALS: BP 129/74
[2024-02-26] MEDS ORDERED: CefTRIAXone Sodium 2,000 MG in NS 100 ML IV SCH (12:00)
[2024-02-26 15:56] VITALS: BP 132/79
--- NOTE | 2024-02-26 17:38 | NUR ---
SHIFT SUMMARY/DISCHARGE NOTE- PT WAS GIVEN VERBAL AND WRITTEN DISCHARGE INSTRUCTIONS AND ACKNOWLEDGED UNDERSTANDING OF THEM. IV AND TELE DC'D PRIOR TO DISCHARGE. PT ESCORTED OUT VIA WC, NO S&S OF DISTRESS AT THE TIME OF DISCHARGE.
== END 2024-02-26 17:53 | disposition home health service (06) ==
LOC: ER 22:11 → MEDS 22:12
PROVIDERS: Emergency Medicine; Family Medicine; ADMIT Hospitalist
DX: J96.01 Acute respiratory failure with hypoxia (principal); J18.9 Pneumonia, unspecified organism; I25.118 Atherosclerotic heart disease of native coronary artery with other forms of angina pectoris; E78.5 Hyperlipidemia, unspecified; I10 Essential (primary) hypertension; K21.9 Gastro-esophageal reflux disease without esophagitis; J44.9 Chronic obstructive pulmonary disease, unspecified; Z79.899 Other long term (current) drug therapy; Z79.82 Long term (current) use of aspirin
CPT/HCPCS: 36415; 71045; 71260; 80048; 80053; 83605; 83690; 83880; 84145; 84484; 85025; 87040; 87077; 87186; 93005; 93010; 94762; 96365; 96366; 96368; 96372; 96376; 97162; 97530; 99285-25; A9270; G0378; J0456; J0696; J1650; J7050; J7120; Q9967

== ENCOUNTER 2024-09-08 09:43 | Day surgery (SDC) | payer MEDICARE ==
[~2024-09-08] VITALS: Ht 162.6 cm; Wt 94.3 kg
[~2024-09-08 09:43] MED LIST changes: +CYMBALTA30 M2 PO; +NS 500 ML IV ONE
[2024-09-08] MEDS ORDERED: CeFAZolin Sodium 2,000 MG VIAL ONE (10:17)
[2024-09-08] MEDS ORDERED: Alendronate Sodi5 MG PO (10:22)
[2024-09-08] MEDS ORDERED: ELIQUIS2.5 M1 PO (10:23)
[2024-09-08] MEDS ORDERED: METOPROLOL SUCC25 MG PO (10:23)
[2024-09-08] MEDS ORDERED: NS 500 ML IV ONE (10:29)
--- NOTE | 2024-09-08 10:36 | NUR ---
09/08/24 1036 Grace Hernandez TIME OUT PERFORMED AT BEDSIDE AT [address]ICKERSON IMMEDIATELY PRIOR TO INJECTION OF 5ML OF SOLUTION CONSISTING OF 9ML 1% LIDOCAINE WITH EPI [id number] AND 1ML 8.4% SODIUM BICARBONATE INTO LEFT HAND. PT VERBALIZED DISCOMFORT DURING INJECTION BUT OTHERWISE TOLERATED WELL
[2024-09-08] MEDS ORDERED: Midazolam HCl 1MG / ML 2ML Vial ONE (10:38)
[2024-09-08] MEDS ORDERED: FentaNYL Citrate 50 MCG/ML 2 ML Injection ONE (10:38)
--- NOTE | 2024-09-08 13:52 | NUR ---
09/08/24 1352 Serafin Miranda PT INITIALLY DIZZY UPON STANDING IN SDU BUT REPORTED DIZZINESS RESOLVED. CAPILARY REFILL NOTED TO BE SLIGHTLY >[address] NICKERSON CONSULTED AND APPROVED D/C.
[2024-09-08 13:54] VITALS: BP 131/97
== END 2024-09-08 11:54 | disposition home or self-care (01) ==
LOC: ORSCSDS 09:43
PROVIDERS: Orthopaedic Surgery
PROC: 0LN80ZZ Release Left Hand Tendon, Open Approach (ICD-10-PCS; principal; 2024-09-08 11:00)
DX: M65.322 Trigger finger, left index finger (principal); F41.9 Anxiety disorder, unspecified; J44.9 Chronic obstructive pulmonary disease, unspecified; F32.A Depression, unspecified; Z86.718 Personal history of other venous thrombosis and embolism; K21.9 Gastro-esophageal reflux disease without esophagitis; G47.33 Obstructive sleep apnea (adult) (pediatric); E78.5 Hyperlipidemia, unspecified; I12.9 Hypertensive chronic kidney disease with stage 1 through stage 4 chronic kidney disease, or unspecified chronic kidney disease; N18.9 Chronic kidney disease, unspecified; I25.2 Old myocardial infarction; Z79.01 Long term (current) use of anticoagulants; Z79.899 Other long term (current) drug therapy
CPT/HCPCS: J0690; J2250; J3010; J7040

== ENCOUNTER 2025-01-22 15:24 | Inpatient (IN) | payer MEDICARE ==
[~2025-01-22] VITALS: Ht 162.6 cm; Wt 94.5 kg
[~2025-01-22 15:24] MED LIST changes: +Alendronate Sodi5 MG PO; +ELIQUIS2.5 M1 PO; -NS 500 ML IV ONE
[2025-01-22 16:02] LABS: BASOPHILS ABSOLUTE AUTO 0.04 K/mm3 (0.00-0.23); BASOPHILS PERCENT AUTO 1 % (0-2); EOSINOPHILS ABSOLUTE AUTO 0.08 K/mm3 (0.00-0.68); EOSINOPHILS PERCENT AUTO 1 % (0-6); Hematocrit 46.3 % (33.0-51.0); Hemoglobin 14.6 g/dL (11.5-16.0); IMMATURE GRAN ABSOLUTE AUTO 0.04 K/mm3 (0.00-0.10); IMMATURE GRAN PERCENT AUTO 1 % (0-1); LYMPHOCYTES ABSOLUTE AUTO 2.64 K/mm3 (0.84-5.20); LYMPHOCYTES PERCENT AUTO 31 % (21-46); MONOCYTES ABSOLUTE AUTO 0.56 K/mm3 (0.16-1.47); MONOCYTES PERCENT AUTO 7 % (4-13); Mean Corpuscular HGB Conc 31.5 g/dL (31.5-36.5); Mean Corpuscular Volume 89 fL (80-100); NEUTROPHILS ABSOLUTE AUTO 5.24 K/mm3 (1.96-9.15); NEUTROPHILS PERCENT AUTO 61 % (41-73); NRBC ABSOLUTE 0.00 K/mm3 (0.00-0.02); NRBC Auto 0.0 /100 WBC (0.0-0.2); Platelet Count 207 K/mm3 (150-400); RDW Coefficient Variation 14.7 % (11.7-14.2); RDW Standard Deviation 47.6 fL (35.1-46.3)
[2025-01-22 16:29] LABS: Alanine Aminotransfer (ALT/SGP 14.0 U/L (12-78); Albumin, Blood 3.0 g/dL (3.4-5.0); Albumin/Globulin Ratio 0.6 (0.8-1.8); Anion Gap 7.0 mmol/L (3-11); Aspartate Aminotrans (AST/SGOT 24.0 U/L (12-37); Bilirubin, Total 0.9 mg/dL (0.1-1.0); Blood Urea Nitrogen 22.0 mg/dL (8-24); CO2, Blood 27.0 mmol/L (21-32); Calcium, Blood 8.6 mg/dL (8.5-10.1); Chloride, Blood 105.0 mmol/L (98-108); Creatinine, Blood 1.43 mg/dL (0.40-1.00); Globulin, Blood 5.2 g/dL (2.2-4.0); Glucose, Blood 114.0 mg/dL (70-99); Potassium, Blood 3.7 mmol/L (3.5-5.5); Sodium, Blood 135.0 mmol/L (136-145); Total Protein, Blood 8.2 g/dL (6.4-8.2)
[2025-01-22 16:42] LABS: Influenza A, PCR NEGATIVE (NEGATIVE); Influenza B, PCR NEGATIVE (NEGATIVE); Resp Syncytial Virus, PCR NEGATIVE (NEGATIVE); SARS-Cov-2 (COVID-19) PCR, MMC NEGATIVE (NEGATIVE)
[2025-01-23] MEDS ORDERED: FentaNYL Citrate 50 MCG/ML 2 ML Injection IV PRN (02:30)
[2025-01-23] MEDS ORDERED: Enoxaparin 40 MG/0.4 ML SYR SC SCH (09:00)
[2025-01-23] MEDS ORDERED: DULoxetine HCL 30 MG Cap DR PO SCH ×2 (09:00)
[2025-01-23 12:31] VITALS: BP 138/71
[2025-01-23] MEDS ORDERED: MELO7.5 PO (12:45)
[2025-01-23] MEDS ORDERED: AMLO10 PO (12:48)
[2025-01-23] MEDS ORDERED: ALEN70 PO (12:50)
[2025-01-23 13:34] LABS: BASOPHILS ABSOLUTE AUTO 0.03 K/mm3 (0.00-0.23); BASOPHILS PERCENT AUTO 0 % (0-2); EOSINOPHILS ABSOLUTE AUTO 0.07 K/mm3 (0.00-0.68); EOSINOPHILS PERCENT AUTO 1 % (0-6); Hematocrit 44.5 % (33.0-51.0); Hemoglobin 14.1 g/dL (11.5-16.0); IMMATURE GRAN ABSOLUTE AUTO 0.02 K/mm3 (0.00-0.10); IMMATURE GRAN PERCENT AUTO 0 % (0-1); LYMPHOCYTES ABSOLUTE AUTO 2.10 K/mm3 (0.84-5.20); LYMPHOCYTES PERCENT AUTO 31 % (21-46); MONOCYTES ABSOLUTE AUTO 0.48 K/mm3 (0.16-1.47); MONOCYTES PERCENT AUTO 7 % (4-13); Mean Corpuscular HGB Conc 31.7 g/dL (31.5-36.5); Mean Corpuscular Volume 88 fL (80-100); NEUTROPHILS ABSOLUTE AUTO 4.18 K/mm3 (1.96-9.15); NEUTROPHILS PERCENT AUTO 61 % (41-73); NRBC ABSOLUTE 0.00 K/mm3 (0.00-0.02); NRBC Auto 0.0 /100 WBC (0.0-0.2); Platelet Count 162 K/mm3 (150-400); RDW Coefficient Variation 14.9 % (11.7-14.2); RDW Standard Deviation 47.5 fL (35.1-46.3)
[2025-01-23 14:08] LABS: Alanine Aminotransfer (ALT/SGP 14.0 U/L (12-78); Albumin, Blood 3.0 g/dL (3.4-5.0); Albumin/Globulin Ratio 0.6 (0.8-1.8); Anion Gap 7.0 mmol/L (3-11); Aspartate Aminotrans (AST/SGOT 17.0 U/L (12-37); Bilirubin, Total 0.8 mg/dL (0.1-1.0); Blood Urea Nitrogen 22.0 mg/dL (8-24); CO2, Blood 30.0 mmol/L (21-32); Calcium, Blood 8.1 mg/dL (8.5-10.1); Chloride, Blood 104.0 mmol/L (98-108); Creatinine, Blood 0.96 mg/dL (0.40-1.00); Globulin, Blood 4.7 g/dL (2.2-4.0); Glucose, Blood 104.0 mg/dL (70-99); Potassium, Blood 3.6 mmol/L (3.5-5.5); Sodium, Blood 137.0 mmol/L (136-145); Total Protein, Blood 7.7 g/dL (6.4-8.2)
[2025-01-23 15:06] VITALS: BP 133/59
--- NOTE | 2025-01-23 17:53 | NUR ---
SHIFT SUMMARY: PATIENT A+O X4 THROUGHOUT THIS SHIFT AND ABLE TO MAKE NEEDS KNOWN. PATIENT TO HAVE SECOND PORTION OF STRESS TEST 01/24/25. DEPENDANT ON FINDINGS, WILL DETERMAIN PLAN OF CARE. PATIENT IS 1P ASSIST TO BSC WHEN NOT UTILIZING PUREWICK SYSTEM. PATIENT NOTED TO HAVE REDNESS UNDERNEATH BL BREASTS AND IN GROIN. PATIENT MEDICATED FOR PAIN PER EMAR. LUNGS CLEAR, S1 S2 HEARD ON ASCULTATION. PATIENT NOTED TO BE CON OF BOTH BOWEL AND BLADDER.
[2025-01-23 19:21] VITALS: BP 126/71
[2025-01-23 23:52] VITALS: BP 133/59
[2025-01-24] VITALS (7 sets, daily range): BP systolic 114–141; BP diastolic 49–103
--- NOTE | 2025-01-24 06:30 | NUR ---
Shift Summary Pt c/o of some chronic back pain, she did not want Tylenol on the EMAR which she says does not work for her. She takes IBUprofen at home which has severe interactions with Plavix and Eliquis which she is taking her, educated her on risks. She slept well t/o the night. Purewick in place draining yellow voids. She remained in bed t/o the night. She is AOx4, calls appropriatly.
--- NOTE | 2025-01-24 18:18 | NUR ---
SHIFT SUMMARY: PATIENT A+O X4 AND ABLE TO MAKE NEEDS KNOWN. SECOND PORTION OF STRESS TEST COMPLETED THIS SHIFT WITH NO SIGNIFICANT FINDINGS. PATIENTS LUNGS HAVE COARSE CRACKLES IN BASES. S1 S2 HEARD ON ASCULTATION. SKIN WELL WITH NO SIGNS OF BREAKDOWN. PATIENT WAS SUPPOSED TO D/C THIS DAY HOWEVER WAS NOT ABLE TO OBTAIN OXYGEN AT THIS TIME. PLAN TO CONTINUE TO MONITOR AND PROVIDE CARE.
[2025-01-24] MEDS ORDERED: Miconazole Nitrate 2% 85 GM PWD TOP SCH (21:00)
[2025-01-25 03:49] VITALS: BP 116/74
--- NOTE | 2025-01-25 05:39 | NUR ---
PT SLEPT INTERMITTENTLY DURING THE NIGHT. DENIES CP OR PRESSURE. O2 MAINTAINED AT 3L NC WITH CONTINUOUS PULSE OX IN PLACE- SATS WNL. TELEMETRY SHOWING SR. PUREWICK IN PLACE, DRAINING STRONG SMELLING YELLOW URINE. MOIST REDNESS UNDER BREASTS AND IN ABD FOLDS- MEDICATED POWDER PER EMAR APPLIED. CALL LIGHT WITHIN REACH.
[2025-01-25 07:26] VITALS: BP 132/68
[2025-01-25 11:09] VITALS: BP 116/68
[2025-01-25] MEDS ORDERED: CLOP75 PO (12:06)
[2025-01-25] MEDS ORDERED: MICO100S VAG (12:07)
--- NOTE | 2025-01-25 19:24 | NUR ---
DISCHARGE SUMMARY: PATIENT DISCHARGED IN [facility] SPIRITS. JONATHAN DROPPED OFF PORTABLE O2 TANK SET TO 3L VIA NC. PATIENT EDUCATED AND VERBALIZED UNDERSTANDING. PATIENT THEN DEMONSTRATED HOW TO PROPERLY UTILIZE PORTABLE 02. BELONGINGS PACKED AND GIVEN BACK TO PATIENT. MEDICATIONS FAXED TO [facility]. IV REMOVED AND PATIENT WHEELED OUT BY W/C BY THIS NURSE.
== END 2025-01-25 15:39 | disposition home or self-care (01) | DRG 154 ==
LOC: ER 15:24 → MEDS 15:25 → ER 15:25 → ERHOLD 15:25 → MEDS 15:25 → ERHOLD 15:25 → MEDS 15:26 → ERHOLD 21:44 → ER 21:44 → MEDS 01-23 12:20 → ERHOLD 01-23 12:20 → MEDS 01-23 12:21
PROVIDERS: Emergency Medicine; ADMIT Internal Medicine
DX: G47.33 Obstructive sleep apnea (adult) (pediatric) (principal); J96.01 Acute respiratory failure with hypoxia; N17.9 Acute kidney failure, unspecified; I25.10 Atherosclerotic heart disease of native coronary artery without angina pectoris; I25.2 Old myocardial infarction; E66.9 Obesity, unspecified; J44.9 Chronic obstructive pulmonary disease, unspecified; E78.5 Hyperlipidemia, unspecified; M79.7 Fibromyalgia; Z91.198 Patient's noncompliance with other medical treatment and regimen for other reason; Z95.5 Presence of coronary angioplasty implant and graft; Z86.718 Personal history of other venous thrombosis and embolism; Z79.01 Long term (current) use of anticoagulants
CPT/HCPCS: 36415; 71045; 71260; 78452; 80053; 83690; 84484; 85025; 87637; 93005; 93010; 93017; 93306; 94761; 94762; 96374; 96376; 99285-25; A6590; A9270; A9500; G0378; J2785; J3010; Q9967

== ENCOUNTER 2025-02-01 07:25 | Emergency (ER) | payer MEDICARE ==
[~2025-02-01] VITALS: Ht 172.7 cm; Wt 104.3 kg
[~2025-02-01 07:25] MED LIST changes: +MICO100S VAG
[2025-02-01 08:27] LABS: BASOPHILS ABSOLUTE AUTO 0.02 K/mm3 (0.00-0.23); BASOPHILS PERCENT AUTO 0 % (0-2); EOSINOPHILS ABSOLUTE AUTO 0.07 K/mm3 (0.00-0.68); EOSINOPHILS PERCENT AUTO 1 % (0-6); Hematocrit 43.1 % (33.0-51.0); Hemoglobin 13.8 g/dL (11.5-16.0); IMMATURE GRAN ABSOLUTE AUTO 0.01 K/mm3 (0.00-0.10); IMMATURE GRAN PERCENT AUTO 0 % (0-1); LYMPHOCYTES ABSOLUTE AUTO 2.02 K/mm3 (0.84-5.20); LYMPHOCYTES PERCENT AUTO 30 % (21-46); MONOCYTES ABSOLUTE AUTO 0.43 K/mm3 (0.16-1.47); MONOCYTES PERCENT AUTO 6 % (4-13); Mean Corpuscular HGB Conc 32.0 g/dL (31.5-36.5); Mean Corpuscular Volume 87 fL (80-100); NEUTROPHILS ABSOLUTE AUTO 4.26 K/mm3 (1.96-9.15); NEUTROPHILS PERCENT AUTO 63 % (41-73); NRBC ABSOLUTE 0.00 K/mm3 (0.00-0.02); NRBC Auto 0.0 /100 WBC (0.0-0.2); Platelet Count 148 K/mm3 (150-400); RDW Coefficient Variation 14.3 % (11.7-14.2); RDW Standard Deviation 45.4 fL (35.1-46.3)
[2025-02-01 08:51] LABS: Alanine Aminotransfer (ALT/SGP 17.0 U/L (12-78); Albumin, Blood 2.9 g/dL (3.4-5.0); Albumin/Globulin Ratio 0.6 (0.8-1.8); Anion Gap 7.0 mmol/L (3-11); Aspartate Aminotrans (AST/SGOT 23.0 U/L (12-37); Bilirubin, Total 0.6 mg/dL (0.1-1.0); Blood Urea Nitrogen 17.0 mg/dL (8-24); CO2, Blood 31.0 mmol/L (21-32); Calcium, Blood 8.2 mg/dL (8.5-10.1); Chloride, Blood 103.0 mmol/L (98-108); Creatinine, Blood 0.81 mg/dL (0.40-1.00); Globulin, Blood 5.0 g/dL (2.2-4.0); Glucose, Blood 115.0 mg/dL (70-99); Potassium, Blood 3.5 mmol/L (3.5-5.5); Sodium, Blood 137.0 mmol/L (136-145); Total Protein, Blood 7.9 g/dL (6.4-8.2)
[2025-02-01 09:48] VITALS: BP 128/76
== END 2025-02-01 09:48 | disposition home or self-care (01) ==
LOC: ER 07:25
PROVIDERS: Emergency Medicine
DX: R07.9 Chest pain, unspecified (principal); I10 Essential (primary) hypertension; K21.9 Gastro-esophageal reflux disease without esophagitis; G47.30 Sleep apnea, unspecified; Z86.79 Personal history of other diseases of the circulatory system; Z79.899 Other long term (current) drug therapy; Z91.048 Other nonmedicinal substance allergy status; Z88.5 Allergy status to narcotic agent; Z88.6 Allergy status to analgesic agent; Z88.8 Allergy status to other drugs, medicaments and biological substances
CPT/HCPCS: 71045; 80053; 84484; 85025; 93005; 93010; 99285-25

== ENCOUNTER 2025-02-15 00:16 | Inpatient (IN) | payer MEDICARE ==
[~2025-02-15] VITALS: Ht 162.6 cm; Wt 91.6 kg
[2025-02-15 01:36] LABS: BASOPHILS ABSOLUTE AUTO 0.04 K/mm3 (0.00-0.23); BASOPHILS PERCENT AUTO 1 % (0-2); EOSINOPHILS ABSOLUTE AUTO 0.12 K/mm3 (0.00-0.68); EOSINOPHILS PERCENT AUTO 1 % (0-6); Hematocrit 42.1 % (33.0-51.0); Hemoglobin 13.5 g/dL (11.5-16.0); IMMATURE GRAN ABSOLUTE AUTO 0.02 K/mm3 (0.00-0.10); IMMATURE GRAN PERCENT AUTO 0 % (0-1); LYMPHOCYTES ABSOLUTE AUTO 2.27 K/mm3 (0.84-5.20); LYMPHOCYTES PERCENT AUTO 26 % (21-46); MONOCYTES ABSOLUTE AUTO 0.58 K/mm3 (0.16-1.47); MONOCYTES PERCENT AUTO 7 % (4-13); Mean Corpuscular HGB Conc 32.1 g/dL (31.5-36.5); Mean Corpuscular Volume 86 fL (80-100); NEUTROPHILS ABSOLUTE AUTO 5.67 K/mm3 (1.96-9.15); NEUTROPHILS PERCENT AUTO 65 % (41-73); NRBC ABSOLUTE 0.00 K/mm3 (0.00-0.02); NRBC Auto 0.0 /100 WBC (0.0-0.2); Platelet Count 182 K/mm3 (150-400); RDW Coefficient Variation 14.0 % (11.7-14.2); RDW Standard Deviation 44.2 fL (35.1-46.3)
[2025-02-15 01:56] LABS: Alanine Aminotransfer (ALT/SGP 18.0 U/L (12-78); Albumin, Blood 3.0 g/dL (3.4-5.0); Albumin/Globulin Ratio 0.6 (0.8-1.8); Anion Gap 8.0 mmol/L (3-11); Aspartate Aminotrans (AST/SGOT 17.0 U/L (12-37); Bilirubin, Total 0.5 mg/dL (0.1-1.0); Blood Urea Nitrogen 22.0 mg/dL (8-24); CO2, Blood 33.0 mmol/L (21-32); Calcium, Blood 8.7 mg/dL (8.5-10.1); Chloride, Blood 99.0 mmol/L (98-108); Creatinine, Blood 1.11 mg/dL (0.40-1.00); Globulin, Blood 4.7 g/dL (2.2-4.0); Glucose, Blood 181.0 mg/dL (70-99); Potassium, Blood 3.5 mmol/L (3.5-5.5); Sodium, Blood 136.0 mmol/L (136-145); Total Protein, Blood 7.7 g/dL (6.4-8.2)
[2025-02-15] MEDS ORDERED: Ipratropium/Albuterol SulF 2.5-0.5MG/3 ML Amp INH SCH (04:50)
[2025-02-15] MEDS ORDERED: FLU VACC TS2025(65UP)/MF59C/PF 45 MCG/0.5 ML SYRINGE IM SCH (04:50)
[2025-02-15] MEDS ORDERED: Ondansetron HCl 2 MG / ML 2ML Vial IV PRN (04:50)
[2025-02-15] MEDS ORDERED: Enoxaparin 40 MG/0.4 ML SYR SC SCH (09:00)
[2025-02-15 09:01] VITALS: BP 124/73
[2025-02-15 15:31] VITALS: BP 142/77
--- NOTE | 2025-02-15 17:17 | NUR ---
END OF SHIFT PATIENT RESTING IN BED. MODERATE COUGH SINCE ON THE FLOOR. PUREWICK IN PLACE. 3L NC, PULSE OX IN PLACE. RESPIRATORY PANEL SWAB PENDING, CALLED LAB TO CHECK ON IT. PATIENT DOES NOT HAVE DENTURES WITH HER, HAS GLASSES AND PERSONAL PHONE. A&OX4, CALLS WHEN IN NEED.
[2025-02-15 18:00] LABS: Influenza A/2009-H1 Not Detected (NOT DETECT); SARS-Cov-2 (COVID-19), BioFire Not Detected (NOT DETECT)
[2025-02-15 19:40] VITALS: BP 168/69
[2025-02-15 23:45] VITALS: BP 121/75
[2025-02-16 04:08] VITALS: BP 132/82
--- NOTE | 2025-02-16 04:08 | NUR ---
NOTIFIED BY ROAD CONTRACTOR PT HAVING SMALL ST ELEVATIONS SINCE 344. PT ASSESSED AND SOUND ASLEEP. VSS AND PT REPORTED NO S/S. HOSPITALIST NOTIFIED AND GIVEN ORDERS TO COMINTUE TO MONITOR AND IF PT BECOMES SYMPTOMATIC TO PERFORM EKG. PT ALSO NOTED TO HAVE CRACKLES IN BOTH LOWER LOBES, BNP ADDED TO AM LABS.
--- NOTE | 2025-02-16 04:42 | NUR ---
SHIFT SUMMARY NOC PT A/O X 4. SIGNIFICAT BUE TREMORS NOTED. PLEASANT AND COOPERATIVE WITH CARE. ONE ELEVATED BP WHEN PT WAS AGITATED, BUT AFTERWARED ALL VSS Q4H CHECKS. PT ON 3L/NC SPO2 >92% WHICH IS BASELINE. PT HAS BILATERAL LOWER LOBE CRACKLES NOTED ON ASSESSMENT AND BNP ADDED TO AM LABS. PT ON TELE SINUS RHYTH/TACH IN 90'S-120'S AT TIMES, ALSO NOTIFIED BY [employer]WORK ARCHITECT THAT PT HAD SOME SMALL ST ELEVATIONS. PT ASSESSED AND ASLEEP, VS STABLE WHEN CHECKED AND WHEN AWAKE NO S/S REPORTED. HOSPITALIST NOTIFIED AND ORDERS TO CONTINUE MONITORING AND TO PERFORM EKG IF PT BECAME SYMPTOMATIC. PT HAS PUREWICK IN PLACE DUE TO GEN WEAKNESS/INCONTINENCE. PT CURRENTLY RESTING WITH BED IN LOWEST POSITION, AND CALL LIGHT WITHIN REACH.
[2025-02-16 06:18] LABS: Anion Gap 9.0 mmol/L (3-11); Blood Urea Nitrogen 29.0 mg/dL (8-24); CO2, Blood 29.0 mmol/L (21-32); Calcium, Blood 9.4 mg/dL (8.5-10.1); Chloride, Blood 100.0 mmol/L (98-108); Creatinine, Blood 0.98 mg/dL (0.40-1.00); Glucose, Blood 177.0 mg/dL (70-99); Potassium, Blood 4.0 mmol/L (3.5-5.5); Sodium, Blood 134.0 mmol/L (136-145)
[2025-02-16 07:04] VITALS: BP 114/67
--- NOTE | 2025-02-16 08:23 | NUR ---
Pt laying in bed, very talkative, a/ox4, pleasant and coopertive with care, follows commands well, denies pain at this time, states she is feeling better than when she came in, lungs are clear in upper [place], course dim in bases, resp even and unlabored, has nonproductive cough with deep breath, currently on 3 liters 02 via n/c, which is her baseline, hrr, tele in place running sr with bbb and pvc in 90's, 2+ edema noted to b/l le, cap refill< 3 sec, vs stable, afebrile, piv to lac, site is clear and patent, btx4, abd, flat soft, nontender, voids via purwick at this time, skin c/w/d, has a tremor, viviana, got her up to chair for breakfast, states hasn't been oob since admit, stood well, but is shakey, call light in reach.
[2025-02-16 11:05] VITALS: BP 129/99
[2025-02-16] MEDS ORDERED: Albuterol 2.5 MG/3 ML VIAL INH PRN (11:45)
[2025-02-16 15:59] VITALS: BP 134/74
--- NOTE | 2025-02-16 18:23 | NUR ---
pt up to chair with one person assist, sat up for a few hrs, PT worked with her, ambulated her out in the [place], is incont, with briefs, no further changes this shift, call light in reach.
[2025-02-16 19:08] VITALS: BP 149/73
[2025-02-17 03:37] VITALS: BP 162/84
[2025-02-17 03:38] VITALS: BP 152/87
--- NOTE | 2025-02-17 03:52 | NUR ---
SHIFT SUMMARY A&OX4. ABLE TO MAKE ALL NEEDS KNOWN. HAD X2 INCONTINENT BMS DURING SHIFT. DENIES PAIN. ON 3 LPM O2 VIA NC. TELE PRESENT AND IS SR @ 89. PUREWICK IN PLACE AND DRAINING YELLOW URINE. PT DID NOT SLEEP MUCH DURING SHIFT. PT HAS DIFFICULTY SITTING STILL AND CALM WHILE OBTAINING VS AND APPEARED TO CAUSE FALSLY ELEVATED VS. PT CURRENTLY RESTING IN BED AT LOWEST POSITION WITH CALL LIGHT WITHIN REACH.
[2025-02-17 06:58] VITALS: BP 145/76
[2025-02-17] MEDS ORDERED: GUAI600T33 PO (11:40)
[2025-02-17] MEDS ORDERED: PRED20 PO (11:40)
[2025-02-17] MEDS ORDERED: ALBU90OI INH (11:41)
[2025-02-17] MEDS ORDERED: FLUTICASONE-SA1 EAC1 INH (11:41)
[2025-02-17] MEDS ORDERED: PANT20 PO (11:42)
--- NOTE | 2025-02-17 14:00 | NUR ---
DISCHARGE NOTE PT DISCHARGED TO HOME, PICKED UP BY HER . DISCHARGE EDUCATION AND INFORMATION REVIEWED WITH THE PT AND . PERSONAL BELONGINGS RETURNED. MEDICATIONS FAXED TO THE PHARMACY OF HER CHOICE. IV REMOVED. TELE RETURNED.
== END 2025-02-17 13:48 | disposition home or self-care (01) | DRG 189 ==
LOC: ER 00:16 → ERHOLD 00:17 → MEDS 08:47
PROVIDERS: Internal Medicine; Student in an Organized Health Care Education/Training Program; ADMIT Student in an Organized Health Care Education/Training Program
DX: J96.22 Acute and chronic respiratory failure with hypercapnia (principal); I21.A1 Myocardial infarction type 2; J44.1 Chronic obstructive pulmonary disease with (acute) exacerbation; I25.10 Atherosclerotic heart disease of native coronary artery without angina pectoris; J96.21 Acute and chronic respiratory failure with hypoxia; Z95.5 Presence of coronary angioplasty implant and graft; I10 Essential (primary) hypertension; E78.5 Hyperlipidemia, unspecified; Z99.81 Dependence on supplemental oxygen; Z86.718 Personal history of other venous thrombosis and embolism; G47.33 Obstructive sleep apnea (adult) (pediatric); M25.512 Pain in left shoulder; Z88.5 Allergy status to narcotic agent; Z88.8 Allergy status to other drugs, medicaments and biological substances; M81.0 Age-related osteoporosis without current pathological fracture; Z96.642 Presence of left artificial hip joint; Z90.710 Acquired absence of both cervix and uterus; Z96.653 Presence of artificial knee joint, bilateral; Z90.49 Acquired absence of other specified parts of digestive tract; Z98.890 Other specified postprocedural states; Z87.891 Personal history of nicotine dependence; Z79.02 Long term (current) use of antithrombotics/antiplatelets; Z79.01 Long term (current) use of anticoagulants; Z79.899 Other long term (current) drug therapy
CPT/HCPCS: 0202U; 36415; 71045; 80048; 80053; 83690; 83735; 83880; 84484; 85025; 93005; 93010; 94640; 94664; 94762; 96372; 97116; 97162; 97530; 99285-25; A9270; G0378; J1650; J2470; J2919; J7512